=== PATIENT | female | born 1950 | race Hispanic/Latino ===

== ENCOUNTER → 2018-01-17 | Outpatient (CLI) | payer MEDICARE ==
[~2018-01-17] VITALS: Ht 162.6 cm; Wt 93.0 kg
[~2018-01-17] MED LIST: AEC81 PO; CHOL50004 PO; CLOP75TA14 PO; CYCL30DR OU; DICY20TA11 PO; FERR-82 PO; FURO20TA4 PO; GLYB5TAB8 PO; HYDR12.530 PO; IBUP-2077 PO; INS7030 SQ; INSU100V12 SQ; ISOS30TA6 PO; ISOS60TA4 PO; MECL-111 PO; MELO-106 PO; METF10004 PO; METF500T6 PO; METO50TA18 PO; MONT10TA24 PO; NITR0.4T50 SL; ONDA8TAB11 PO; PROM25TA7 PO; RANO500T2 PO; REGADENOSON 0.4 MG/5 ML PF SYG IVP SCH; ROPI1TAB11 PO; SERT50TA12 PO; SIMV80TA7 PO; TORS20TA4 PO
== END | disposition home or self-care (01) ==
LOC: SHCH 10:00
PROVIDERS: ATTEND Internal Medicine Cardiovascular Disease
DX: I25.10 Atherosclerotic heart disease of native coronary artery without angina pectoris (principal); I10 Essential (primary) hypertension; E11.9 Type 2 diabetes mellitus without complications; K21.9 Gastro-esophageal reflux disease without esophagitis
CPT/HCPCS: 78452; 93017; 96374; A9500 ×2; J2785

== ENCOUNTER → 2018-01-19 | Outpatient (CLI) | payer MEDICARE ==
[~2018-01-19] MED LIST changes: +IOPAMIDOL-370 75 ML VIAL IV ONE; +ISOVUE-370 50ML VIAL IV ONE; -REGADENOSON 0.4 MG/5 ML PF SYG IVP SCH
== END | disposition home or self-care (01) ==
LOC: RAH 08:53
PROVIDERS: ATTEND Internal Medicine Cardiovascular Disease
DX: I70.213 Atherosclerosis of native arteries of extremities with intermittent claudication, bilateral legs (principal); I70.0 Atherosclerosis of aorta
CPT/HCPCS: 75635; Q9967 ×2

== ENCOUNTER → 2018-01-20 | Outpatient (CLI) | payer MEDICARE ==
[~2018-01-20] MED LIST changes: -IOPAMIDOL-370 75 ML VIAL IV ONE; -ISOVUE-370 50ML VIAL IV ONE
== END | disposition home or self-care (01) ==
LOC: SHCH 15:11
PROVIDERS: ATTEND Internal Medicine Cardiovascular Disease
DX: I10 Essential (primary) hypertension (principal)
CPT/HCPCS: 93306

== ENCOUNTER 2018-03-13 22:32 | Observation (INO) | payer MEDICARE ==
[~2018-03-13] VITALS: Ht 165.1 cm; Wt 89.4 kg
[~2018-03-13 22:32] MED LIST changes: -DICY20TA11 PO; -FURO20TA4 PO; -GLYB5TAB8 PO; -HYDR12.530 PO; -IBUP-2077 PO; -ISOS60TA4 PO; -MECL-111 PO; -METF500T6 PO; -ONDA8TAB11 PO; -PROM25TA7 PO
[2018-03-13 23:06] LABS: BASOPHILS % (AUTO) 0.8 % (0.0-5.0); HEMATOCRIT 37.4 % (36-48); LYMPHOCYTES % (AUTO) 16.6 % (21.0-51.0); MEAN CORPUSCULAR HEMOGLOBIN 31.6 pg (27.0-33.0); MEAN CORPUSCULAR HGB CONC 34.4 g/dL (32.0-36.0); MEAN CORPUSCULAR VOLUME 91.8 fL (79-99); MONOCYTES % (AUTO) 5.8 % (3.0-13.0); NEUTROPHILS % (AUTO) 74.8 % (40.0-77.0); PLATELET COUNT (AUTO) 275 K/uL (130-400); RED BLOOD CELL COUNT(AUTO) 4.07 MIL/uL (4.00-5.50); RED CELL DISTRIBUTION WIDTH 12.9 % (11.0-15.5); WHITE BLOOD COUNT (AUTO) 10.1 K/uL (4.8-10.8)
[2018-03-13 23:25] LABS: CREATININE 2.4 mg/dL (0.5-1.5); POTASSIUM 3.7 mmol/L (3.5-5.1)
[2018-03-13 23:27] LABS: ALBUMIN 3.5 g/dL (3.5-5.0); BILIRUBIN,TOTAL 0.5 mg/dL (0.2-1.0); TOTAL PROTEIN, SERUM 7.7 g/dL (6.0-8.3)
[2018-03-13 23:39] LABS: INR 0.98 (0.85-1.15); PARTIAL THROMBOPLASTIN TIME 23.9 SEC (26.3-35.5); PROTHROMBIN TIME 10.3 SEC (9.6-11.6)
[2018-03-13 23:54] LABS: CREATINE KINASE MB 1.1 ng/mL (0.5-3.6)
[2018-03-14] VITALS (10 sets, daily range): BP systolic 110–187; BP diastolic 57–84
[2018-03-14 00:05] LABS: APPEARANCE,URINE Clear (CLEAR); BILIRUBIN,URINE Negative (NEGATIVE); COLOR,URINE Yellow (YELLOW); GLUCOSE, URINE (UA) Negative (NEGATIVE); KETONES,URINE Negative (NEGATIVE); LEUKOCYTE ESTERASE ,URINE Trace (NEGATIVE); NITRATE,URINE Negative (NEGATIVE); OCCULT BLOOD,URINE Negative (NEGATIVE); PROTEIN,URINE Negative (NEGATIVE)
[2018-03-14 00:55] LABS: BACTERIA,URINE Rare /HPF (None Seen); RBC,URINE 0-1 /HPF (0-1); WBC,URINE 0-1 /HPF (0-1)
[2018-03-14] MEDS ORDERED: ACETAMINOPHEN 325 MG TAB PO PRN ×2 (01:15)
[2018-03-14] MEDS ORDERED: DEXTROSE 50%-WATER 50 ML DISP.SYRIN IV PRN (01:15)
[2018-03-14] MEDS ORDERED: LIDOCAINE HCL-MPF 1% 2ML VIAL IVP PRN (01:15)
[2018-03-14] MEDS ORDERED: POTASSIUM CHLORIDE 20MEQ/100ML 100 ML IV PRN (01:15)
[2018-03-14] MEDS ORDERED: GLUCAGON 1MG KIT 1 MG ML IM PRN (01:15)
[2018-03-14] MEDS ORDERED: POTASSIUM CHLORIDE 10% ELIXIR 20 MEQ/15 ML UDCUP PO PRN ×2 (01:15→12:45)
[2018-03-14] MEDS ORDERED: HYDRALAZINE HCL 20 MG/ML VIAL IV PRN (01:15)
[2018-03-14] MEDS ORDERED: ONDANSETRON HCL MDV 20ML 2 MG/ML VIAL IV PRN (01:15)
[2018-03-14] MEDS ORDERED: SODIUM CHLORIDE 0.9% 1000ML 1,000 ML IV ONE (01:30)
[2018-03-14] MEDS: SODIUM CHLORIDE 0.9% 1000ML 1,000 ML IV SCH ×2 (01:30→14:49)
[2018-03-14] MEDS ORDERED: ONDA8TAB11 PO (02:29)
[2018-03-14] MEDS ORDERED: IBUP-2077 PO (02:31)
[2018-03-14 05:06] LABS: CREATININE 2.3 mg/dL (0.5-1.5)
[2018-03-14 05:11] LABS: POTASSIUM 2.9 mmol/L (3.5-5.1)
[2018-03-14] MEDS: INSULIN HUMULIN R 100 UNIT/ML 3ML SQ SCH ×4 (06:09→22:20)
[2018-03-14] MEDS: POTASSIUM CHLORIDE 20 MEQ ERTAB PO PRN ×2 (08:09→08:10)
[2018-03-14] MEDS: FAMOTIDINE 20MG TAB 20 MG TAB PO SCH (09:22)
[2018-03-14] MEDS ORDERED: PHARMACY COMMUNICATION MISC SCH (12:15)
[2018-03-14] MEDS ORDERED: LIDOCAINE HCL-MPF 1% 2ML VIAL IV PRN (12:45)
[2018-03-14] MEDS ORDERED: POTASSIUM CHLORIDE 10MEQ/100ML 100 ML IV PRN (12:45)
[2018-03-14] MEDS: SIMETHICONE 80 MG TAB.CHEW PO SCH ×3 (14:50→21:43)
[2018-03-14] MEDS: ***HM***(Cyclosporine (Restasis) 1 DROP) OU SCH (21:00)
[2018-03-14] MEDS: MONTELUKAST SODIUM 10 MG TAB PO SCH (21:43)
[2018-03-14] MEDS: ATORVASTATIN CALCIUM 40 MG TABLET PO SCH (21:43)
[2018-03-14] MEDS: METOPROLOL TARTRATE 50 MG TAB PO SCH (21:43)
[2018-03-14] MEDS: RANOLAZINE 500 MG TAB.SR.12H PO SCH (21:43)
[2018-03-14] MEDS: ROPINIROLE HCL 1 MG TABLET PO SCH (21:44)
[2018-03-15] MEDS: GUAIFENESIN-DM 200/20 MG 10 ML PO PRN ×4 (00:03→22:07)
[2018-03-15 04:00] VITALS: BP 148/62
[2018-03-15 04:35] LABS: HEMATOCRIT 32.8 % (36-48); MEAN CORPUSCULAR HGB CONC 35.8 g/dL (32.0-36.0); MEAN CORPUSCULAR VOLUME 92.3 fL (79-99); PLATELET COUNT (AUTO) 223 K/uL (130-400); RED BLOOD CELL COUNT(AUTO) 3.55 MIL/uL (4.00-5.50); RED CELL DISTRIBUTION WIDTH 13.3 % (11.0-15.5); WHITE BLOOD COUNT (AUTO) 8.9 K/uL (4.8-10.8)
[2018-03-15 04:41] LABS: CREATININE 1.4 mg/dL (0.5-1.5); MAGNESIUM 1.4 mg/dL (1.80-2.40); PHOSPHORUS 2.2 mg/dL (2.5-4.9); POTASSIUM 3.2 mmol/L (3.5-5.1)
[2018-03-15 05:13] LABS: EOSINOPHILS % (MANUAL) 8 % (1-6); LYMPHOCYTES % (MANUAL) 15 % (22-44); MONOCYTES % (MANUAL) 5 % (2-9); SEGMENTED NEUTROPHILS % 72 % (40-70)
[2018-03-15 05:14] LABS: MAN.DIFF COMMENT-IMPRESSION MANUAL DIFFERENTIAL; PLATELET MORPHOLOGY COMMENT ADEQUATE
[2018-03-15] MEDS: INSULIN HUMULIN R 100 UNIT/ML 3ML SQ SCH ×4 (06:37→22:04)
[2018-03-15 08:00] VITALS: BP 160/77
[2018-03-15] MEDS: ***HM***(Cyclosporine (Restasis) 1 DROP) OU SCH ×2 (09:00→21:00)
[2018-03-15] MEDS ORDERED: PSEUDOEPHEDRINE HCL 30 MG TAB PO PRN (09:15)
[2018-03-15] MEDS: CLOPIDOGREL BISULFATE 75 MG TAB PO SCH (09:40)
[2018-03-15] MEDS: SIMETHICONE 80 MG TAB.CHEW PO SCH ×4 (09:41→21:55)
[2018-03-15] MEDS: ASPIRIN 81 MG EC TAB PO SCH (09:41)
[2018-03-15] MEDS: FAMOTIDINE 20MG TAB 20 MG TAB PO SCH (09:41)
[2018-03-15] MEDS: SERTRALINE HCL 50 MG TABLET PO SCH (09:41)
[2018-03-15] MEDS: METOPROLOL TARTRATE 50 MG TAB PO SCH ×2 (09:41→21:55)
[2018-03-15] MEDS: RANOLAZINE 500 MG TAB.SR.12H PO SCH ×2 (09:41→21:55)
[2018-03-15] MEDS: ISOSORBIDE MONO 30MG TAB SR PO SCH ×2 (10:17→21:55)
[2018-03-15] MEDS: OXYMETAZOLINE HCL SPRAY 15 ML BOTTLE EN PRN ×2 (10:17→22:09)
[2018-03-15] MEDS: MAGNESIUM 2GM PREMIX 50ML 50 ML IV SCH (10:18)
[2018-03-15] MEDS: POTASSIUM CHLORIDE 10 MEQ/TAB.SR PO PRN ×3 (10:20→18:13)
[2018-03-15 11:34] VITALS: BP 167/82
[2018-03-15 16:00] VITALS: BP 135/65
[2018-03-15] MEDS: INSULIN HUMULIN 70/30 100 UNIT/ML 3ML SQ SCH (17:29)
[2018-03-15 19:15] VITALS: BP 119/93
[2018-03-15] MEDS: ROPINIROLE HCL 1 MG TABLET PO SCH (21:55)
[2018-03-15] MEDS: MONTELUKAST SODIUM 10 MG TAB PO SCH (21:55)
[2018-03-15] MEDS: ATORVASTATIN CALCIUM 40 MG TABLET PO SCH (21:55)
[2018-03-15] MEDS: FERROUS SULFATE 325 MG TABLET.DR PO SCH (21:55)
[2018-03-16 00:07] VITALS: BP 167/85
[2018-03-16 04:14] VITALS: BP 132/68
[2018-03-16 04:22] LABS: CREATININE 1.3 mg/dL (0.5-1.5); MAGNESIUM 1.5 mg/dL (1.80-2.40); POTASSIUM 3.6 mmol/L (3.5-5.1)
[2018-03-16] MEDS: MAGNESIUM 2GM PREMIX 50ML 50 ML IV SCH (05:39)
[2018-03-16] MEDS: INSULIN HUMULIN R 100 UNIT/ML 3ML SQ SCH (06:53)
[2018-03-16] MEDS: INSULIN HUMULIN 70/30 100 UNIT/ML 3ML SQ SCH (06:58)
[2018-03-16 08:00] VITALS: BP 147/71
[2018-03-16] MEDS: ***HM***(Cyclosporine (Restasis) 1 DROP) OU SCH (09:00)
[2018-03-16] MEDS ORDERED: **HM** VIT D3 5000 UNITS PO SCH (09:00)
[2018-03-16] MEDS ORDERED: FLUTICASONE PROPIONATE 50MCG/SPRAY 16 GM BOTTLE EN SCH (09:00)
[2018-03-16] MEDS: METOPROLOL TARTRATE 50 MG TAB PO SCH (10:05)
[2018-03-16] MEDS: SERTRALINE HCL 50 MG TABLET PO SCH (10:05)
[2018-03-16] MEDS: FERROUS SULFATE 325 MG TABLET.DR PO SCH (10:05)
[2018-03-16] MEDS: SIMETHICONE 80 MG TAB.CHEW PO SCH (10:05)
[2018-03-16] MEDS: ASPIRIN 81 MG EC TAB PO SCH (10:05)
[2018-03-16] MEDS: RANOLAZINE 500 MG TAB.SR.12H PO SCH (10:05)
[2018-03-16] MEDS: CLOPIDOGREL BISULFATE 75 MG TAB PO SCH (10:05)
[2018-03-16] MEDS: ISOSORBIDE MONO 30MG TAB SR PO SCH (10:06)
[2018-03-16] MEDS: FAMOTIDINE 20MG TAB 20 MG TAB PO SCH (10:06)
[2018-03-16 12:00] VITALS: BP 130/62
== END 2018-03-16 14:52 | disposition home or self-care (01) ==
LOC: EDH 22:32 → EDHIP 03-14 00:17 → 3DH 03-14 00:45
PROVIDERS: ADMIT Family Medicine; ATTEND Family Medicine
DX: R55 Syncope and collapse (principal); I25.10 Atherosclerotic heart disease of native coronary artery without angina pectoris; I10 Essential (primary) hypertension; E78.5 Hyperlipidemia, unspecified; E11.51 Type 2 diabetes mellitus with diabetic peripheral angiopathy without gangrene; E11.65 Type 2 diabetes mellitus with hyperglycemia; K52.9 Noninfective gastroenteritis and colitis, unspecified; N28.9 Disorder of kidney and ureter, unspecified; I25.2 Old myocardial infarction; Z95.5 Presence of coronary angioplasty implant and graft; I73.9 Peripheral vascular disease, unspecified
CPT/HCPCS: 36415 ×4; 70450; 71045; 80048 ×3; 80053; 81001; 82550; 82553; 82948 ×10; 83605 ×3; 83690; 83735 ×2; 83874; 84100; 84484; 85025 ×2; 85610; 85730; 87088; 87804 ×2; 87880; 93005; 93880; 96361 ×2; 96365; 96366; 96372 ×3; 96375; 99285; G0378 ×63; J0360; J1815 ×8; J3475 ×2; J3490; J7030

== ENCOUNTER 2018-07-01 12:46 | Emergency (ER) | payer MEDICARE ==
[~2018-07-01 12:46] MED LIST changes: +IBUP-2077 PO; +METF-446 PO; -METF10004 PO; +ONDA8TAB11 PO
[2018-07-01 13:55] LABS: BASOPHILS % (AUTO) 0.8 % (0.0-5.0); EOSINOPHILS % (AUTO) 2.6 % (0.0-8.0); HEMATOCRIT 33.6 % (36-48); MEAN CORPUSCULAR HEMOGLOBIN 33.1 pg (27.0-33.0); MEAN CORPUSCULAR HGB CONC 34.4 g/dL (32.0-36.0); MEAN CORPUSCULAR VOLUME 96.1 fL (79-99); MONOCYTES % (AUTO) 6.5 % (3.0-13.0); NEUTROPHILS % (AUTO) 74.1 % (40.0-77.0); PLATELET COUNT (AUTO) 199 K/uL (130-400); RED BLOOD CELL COUNT(AUTO) 3.49 MIL/uL (4.00-5.50); RED CELL DISTRIBUTION WIDTH 13.2 % (11.0-15.5); WHITE BLOOD COUNT (AUTO) 7.6 K/uL (4.8-10.8)
[2018-07-01 14:24] LABS: CREATININE 1.6 mg/dL (0.5-1.5); POTASSIUM 4.5 mmol/L (3.5-5.1)
[2018-07-01 14:30] LABS: ALBUMIN 3.2 g/dL (3.5-5.0); BILIRUBIN,TOTAL 0.3 mg/dL (0.2-1.0); TOTAL PROTEIN, SERUM 7.6 g/dL (6.0-8.3)
== END 2018-07-01 16:19 | disposition home or self-care (01) ==
LOC: EDH 12:46
DX: E11.649 Type 2 diabetes mellitus with hypoglycemia without coma (principal); R53.1 Weakness; I10 Essential (primary) hypertension; I25.10 Atherosclerotic heart disease of native coronary artery without angina pectoris; E78.5 Hyperlipidemia, unspecified; Z98.890 Other specified postprocedural states
CPT/HCPCS: 36415; 80053; 82948; 85025

== ENCOUNTER 2018-10-23 16:11 | Emergency (ER) | payer MEDICARE ==
[~2018-10-23 16:11] MED LIST changes: -SIMV80TA7 PO; +SIMV80TA91 PO
[2018-10-23 17:09] LABS: BASOPHILS % (AUTO) 0.7 % (0.0-5.0); EOSINOPHILS % (AUTO) 4.7 % (0.0-8.0); HEMATOCRIT 36.9 % (36-48); LYMPHOCYTES % (AUTO) 17.9 % (21.0-51.0); MEAN CORPUSCULAR HEMOGLOBIN 32.1 pg (27.0-33.0); MEAN CORPUSCULAR HGB CONC 33.9 g/dL (32.0-36.0); MEAN CORPUSCULAR VOLUME 94.7 fL (79-99); MONOCYTES % (AUTO) 5.3 % (3.0-13.0); NEUTROPHILS % (AUTO) 71.4 % (40.0-77.0); PLATELET COUNT (AUTO) 233 K/uL (130-400); RED CELL DISTRIBUTION WIDTH 12.8 % (11.0-15.5); WHITE BLOOD COUNT (AUTO) 9.7 K/uL (4.8-10.8)
[2018-10-23 17:18] LABS: CREATININE 2.1 mg/dL (0.5-1.5); POTASSIUM 4.8 mmol/L (3.5-5.1)
== END 2018-10-23 19:14 | disposition home or self-care (01) ==
LOC: EDH 16:11
DX: R55 Syncope and collapse (principal); I25.10 Atherosclerotic heart disease of native coronary artery without angina pectoris; E11.9 Type 2 diabetes mellitus without complications; E78.5 Hyperlipidemia, unspecified; I10 Essential (primary) hypertension; Z79.4 Long term (current) use of insulin; Z90.49 Acquired absence of other specified parts of digestive tract
CPT/HCPCS: 36415; 80048; 84484; 85025; 93005

== ENCOUNTER → 2018-11-06 | Outpatient (CLI) | payer MEDICARE | END | disposition home or self-care (01) | LOC: RAH 11:18 | PROVIDERS: ATTEND Internal Medicine Cardiovascular Disease | DX: M47.26 Other spondylosis with radiculopathy, lumbar region (principal); I73.9 Peripheral vascular disease, unspecified; M48.061 Spinal stenosis, lumbar region without neurogenic claudication; M51.16 Intervertebral disc disorders with radiculopathy, lumbar region | CPT/HCPCS: 72148 ==

== ENCOUNTER → 2018-11-06 | Outpatient (CLI) | payer MEDICARE | END | disposition home or self-care (01) | LOC: SHCH 13:37 | PROVIDERS: ATTEND Internal Medicine Cardiovascular Disease | DX: I73.9 Peripheral vascular disease, unspecified (principal) | CPT/HCPCS: 93925 ==

== ENCOUNTER 2019-01-03 21:10 | Emergency (ER) | payer MEDICARE ==
[2019-01-03] MEDS ORDERED: SODIUM CHLORIDE 0.9% 1000ML 1,000 ML IV ONE (21:34)
[2019-01-03 22:22] LABS: CREATININE 1.7 mg/dL (0.5-1.5); POTASSIUM 3.5 mmol/L (3.5-5.1)
[2019-01-03] MEDS ORDERED: POTASSIUM CHLORIDE 20 MEQ ERTAB PO ONE (22:49)
[2019-01-03] MEDS ORDERED: INSULIN HUMULIN R 100 UNIT/ML 3ML ONE (22:50)
== END 2019-01-03 23:27 | disposition home or self-care (01) ==
LOC: EDH 21:10
DX: E11.65 Type 2 diabetes mellitus with hyperglycemia (principal); Z79.4 Long term (current) use of insulin
CPT/HCPCS: 36415; 80048; 82948 ×2; 83036; 96361; 96374; 99283; J1815; J7030

== ENCOUNTER 2019-01-22 10:25 | Emergency (ER) | payer MEDICARE ==
[2019-01-22 11:21] LABS: BASOPHILS % (AUTO) 0.6 % (0.0-5.0); EOSINOPHILS % (AUTO) 3.1 % (0.0-8.0); HEMATOCRIT 35.5 % (36-48); LYMPHOCYTES % (AUTO) 11.3 % (21.0-51.0); MEAN CORPUSCULAR HEMOGLOBIN 32.7 pg (27.0-33.0); MEAN CORPUSCULAR HGB CONC 34.2 g/dL (32.0-36.0); MEAN CORPUSCULAR VOLUME 95.6 fL (79-99); MONOCYTES % (AUTO) 7.1 % (3.0-13.0); NEUTROPHILS % (AUTO) 77.9 % (40.0-77.0); PLATELET COUNT (AUTO) 194 K/uL (130-400); RED BLOOD CELL COUNT(AUTO) 3.71 MIL/uL (4.00-5.50); WHITE BLOOD COUNT (AUTO) 8.8 K/uL (4.8-10.8)
[2019-01-22 11:36] LABS: ALBUMIN 3.4 g/dL (3.5-5.0); BILIRUBIN,TOTAL 0.5 mg/dL (0.2-1.0); CREATININE 1.8 mg/dL (0.5-1.5); POTASSIUM 4.6 mmol/L (3.5-5.1); TOTAL PROTEIN, SERUM 7.4 g/dL (6.0-8.3)
[2019-01-22 12:29] LABS: APPEARANCE,URINE Clear (CLEAR); BILIRUBIN,URINE Negative (NEGATIVE); COLOR,URINE Yellow (YELLOW); GLUCOSE, URINE (UA) >=1000 mg/dL (NEGATIVE); KETONES,URINE 15 mg/dL (NEGATIVE); LEUKOCYTE ESTERASE ,URINE Negative (NEGATIVE); NITRATE,URINE Negative (NEGATIVE); OCCULT BLOOD,URINE Negative (NEGATIVE); PROTEIN,URINE Negative (NEGATIVE); UROBILINOGEN,URINE 0.2 mg/dL (0.2-1.0)
[2019-01-22 12:32] LABS: RBC,URINE 0-1 /HPF (0-1); WBC,URINE 0-1 /HPF (0-1)
[2019-01-22 12:33] LABS: BACTERIA,URINE Rare /HPF (None Seen); SQUAMOUS EPITHELIAL CELL,UR Few /HPF (0-2); YEAST,URINE BUDDING Moderate /HPF (None Seen)
[2019-01-22] MEDS ORDERED: INSULIN HUMULIN R 100 UNIT/ML 3ML ONE (12:50)
[2019-01-22] MEDS ORDERED: SODIUM CHLORIDE 0.9% 1000ML 1,000 ML IV ONE (12:55)
== END 2019-01-22 15:20 | disposition home or self-care (01) ==
LOC: EDH 10:25
DX: E11.65 Type 2 diabetes mellitus with hyperglycemia (principal); R53.1 Weakness; M25.561 Pain in right knee; M25.562 Pain in left knee; I10 Essential (primary) hypertension; E78.5 Hyperlipidemia, unspecified; I25.10 Atherosclerotic heart disease of native coronary artery without angina pectoris; G89.29 Other chronic pain; M54.9 Dorsalgia, unspecified; Z90.49 Acquired absence of other specified parts of digestive tract; Z98.890 Other specified postprocedural states; Z79.899 Other long term (current) drug therapy; W18.39XA Other fall on same level, initial encounter; Y93.89 Activity, other specified; Y92.89 Other specified places as the place of occurrence of the external cause; Y99.8 Other external cause status
CPT/HCPCS: 36415; 71045; 80053; 81001; 82009; 82948; 84484; 85025; 93005; 96361; 96374; 99284; J1815; J7030

== ENCOUNTER → 2019-07-09 | Outpatient (CLI) | payer MEDICARE | END | disposition home or self-care (01) | LOC: SHCH 11:35 | PROVIDERS: ATTEND Internal Medicine Cardiovascular Disease | DX: I65.23 Occlusion and stenosis of bilateral carotid arteries (principal) | CPT/HCPCS: 93880 ==

== ENCOUNTER 2019-07-21 05:20 | Emergency (ER) | payer MEDICARE ==
[2019-07-21] MEDS ORDERED: SODIUM CHLORIDE 0.9% 1000ML 1,000 ML IV ONE (06:11)
[2019-07-21 06:54] LABS: BASOPHILS % (AUTO) 0.8 % (0.0-5.0); EOSINOPHILS % (AUTO) 4.3 % (0.0-8.0); HEMATOCRIT 36.8 % (36-48); LYMPHOCYTES % (AUTO) 18.3 % (21.0-51.0); MEAN CORPUSCULAR HEMOGLOBIN 33.4 pg (27.0-33.0); MEAN CORPUSCULAR HGB CONC 34.7 g/dL (32.0-36.0); MEAN CORPUSCULAR VOLUME 96.4 fL (79-99); MONOCYTES % (AUTO) 6.2 % (3.0-13.0); NEUTROPHILS % (AUTO) 70.4 % (40.0-77.0); PLATELET COUNT (AUTO) 195 K/uL (130-400); RED BLOOD CELL COUNT(AUTO) 3.82 MIL/uL (4.00-5.50); RED CELL DISTRIBUTION WIDTH 12.1 % (11.0-15.5); WHITE BLOOD COUNT (AUTO) 9.6 K/uL (4.8-10.8)
[2019-07-21 07:04] LABS: INR 0.91 (0.85-1.15); PARTIAL THROMBOPLASTIN TIME 26.3 SEC (26.3-35.5); PROTHROMBIN TIME 9.6 SEC (9.6-11.6)
[2019-07-21 07:09] LABS: ALBUMIN 3.6 g/dL (3.5-5.0); BILIRUBIN,TOTAL 0.3 mg/dL (0.2-1.0); CREATININE 1.7 mg/dL (0.5-1.5)
[2019-07-21 07:23] LABS: B-TYPE NATRIURETIC PEPTIDE 68 pg/mL (0-100)
== END 2019-07-21 08:26 | disposition home or self-care (01) ==
LOC: EDH 05:20
DX: F43.0 Acute stress reaction (principal); R55 Syncope and collapse; E11.9 Type 2 diabetes mellitus without complications; I25.10 Atherosclerotic heart disease of native coronary artery without angina pectoris; E78.5 Hyperlipidemia, unspecified; I10 Essential (primary) hypertension; Z79.4 Long term (current) use of insulin
CPT/HCPCS: 36415; 71045; 80053; 82550; 83605; 83690; 83880; 84484; 85025; 85610; 85730; 93005; 96360; 99285; J7030

== ENCOUNTER → 2020-05-23 | Outpatient (CLI) | payer OTHER, MEDICARE ==
[~2020-05-23] MED LIST changes: -CLOP75TA14 PO; +GABA-531 PO; -IBUP-2077 PO; -INS7030 SQ; +INSU100I13 SQ; -INSU100V12 SQ; -MELO-106 PO; -METF-446 PO; +METO25TA6 PO; -METO50TA18 PO; -MONT10TA24 PO; +MONT10TA26 PO; -ONDA8TAB11 PO; -ROPI1TAB11 PO; -SERT50TA12 PO; +TORS10TA18 PO; -TORS20TA4 PO
== END | disposition home or self-care (01) ==
LOC: SHCH 09:38
PROVIDERS: ATTEND Internal Medicine Cardiovascular Disease
DX: I34.0 Nonrheumatic mitral (valve) insufficiency (principal)
CPT/HCPCS: 93306

== ENCOUNTER → 2020-07-31 | Outpatient (CLI) | payer OTHER, MEDICARE ==
[~2020-07-31] MED LIST changes: +REGADENOSON 0.4 MG/5 ML PF SYG IVP SCH
== END | disposition home or self-care (01) ==
LOC: SHCH 08:38
PROVIDERS: ATTEND Internal Medicine Cardiovascular Disease
DX: I25.89 Other forms of chronic ischemic heart disease (principal); I10 Essential (primary) hypertension
CPT/HCPCS: 78452; 93017; 96374; A9500 ×2; J2785

== ENCOUNTER 2020-10-18 11:32 | Inpatient (IN) | payer OTHER, MEDICARE ==
[~2020-10-18] VITALS: Ht 160 cm; Wt 77.2 kg
[~2020-10-18 11:32] MED LIST changes: -ISOS30TA6 PO; +ISOS30TA92 PO; +MONT-39 PO; -MONT10TA26 PO; -REGADENOSON 0.4 MG/5 ML PF SYG IVP SCH
[2020-10-18 11:48] LABS: BASOPHILS % (AUTO) 0.1 % (0.0-5.0); HEMATOCRIT 28.1 % (36-48); LYMPHOCYTES % (AUTO) 3.9 % (21.0-51.0); MEAN CORPUSCULAR HEMOGLOBIN 30.6 pg (27.0-33.0); MEAN CORPUSCULAR HGB CONC 32.4 g/dL (32.0-36.0); MEAN CORPUSCULAR VOLUME 94.6 fL (79-99); MONOCYTES % (AUTO) 2.6 % (3.0-13.0); NEUTROPHILS % (AUTO) 92.6 % (40.0-77.0); PLATELET COUNT (AUTO) 341 K/uL (130-400); RED BLOOD CELL COUNT(AUTO) 2.97 MIL/uL (4.00-5.50); RED CELL DISTRIBUTION WIDTH 13.2 % (11.0-15.5); WHITE BLOOD COUNT (AUTO) 14.1 K/uL (4.8-10.8)
[2020-10-18 12:16] LABS: ALBUMIN 1.8 g/dL (3.5-5.0); BILIRUBIN,TOTAL 0.9 mg/dL (0.2-1.0); CREATININE 1.8 mg/dL (0.5-1.5); POTASSIUM 3.8 mmol/L (3.5-5.1); TOTAL PROTEIN, SERUM 7.2 g/dL (6.0-8.3)
[2020-10-18] MEDS ORDERED: DEXAMETHASONE SOD PHOSPHATE 10MG/ML 1ML VIAL ONE (12:42)
[2020-10-18] MEDS ORDERED: 0.9%NACL 1000ML 1,000 ML IV ONE (12:42)
[2020-10-18] MEDS ORDERED: AZITHROMYCIN 500MG+NS 250ML 250 ML IV ONE (12:42)
[2020-10-18] MEDS ORDERED: CEFTRIAXONE 1G VIAL ONE (12:42)
[2020-10-18 13:15] LABS: ABG BASE EXCESS -1.3 mmol/L (-2.0-3.0); ABG HCO3 22.7 mmol/L (21.0-28.0); ABG OXYGEN SATURATION 99.2 % (95.0-99.0); ABG PCO2 36 mmHg (32-45)
[2020-10-18] MEDS ORDERED: NOREPINEPHRIN 4MG/NS 250ML 250 ML IV ONE (13:41)
[2020-10-18] MEDS: ARTIFICAL TEARS SOL 15 ML OU SCH ×2 (16:45→22:45)
[2020-10-18] MEDS ORDERED: CLONIDINE HCL 0.1 MG TABLET PO PRN (16:45)
[2020-10-18] MEDS ORDERED: ACETAMINOPHEN 650 MG SUPPOSITORY RC PRN (16:45)
[2020-10-18] MEDS ORDERED: LABETALOL 20MG SYG IV PRN (16:45)
[2020-10-18] MEDS ORDERED: CHLORHEXIDINE GLUCONATE 473 ML MOUTHWASH MM SCH (16:45)
[2020-10-18] MEDS ORDERED: ONDANSETRON 4MG INJ IVP PRN (16:45)
[2020-10-18 17:24] LABS: TROPONIN I 0.04 ng/mL (0.00-0.06)
[2020-10-18] MEDS: CHLORHEXIDINE GLUCONATE 473 ML MOUTHWASH MM SCH ×2 (17:45→23:45)
[2020-10-18] MEDS: ALBUTEROL INHALER 90MCG/INH IH SCH ×2 (18:00→22:00)
[2020-10-18] MEDS ORDERED: INSULIN HUMULIN R 100 UNIT/ML 3ML ONE (20:50)
[2020-10-18] MEDS ORDERED: ENOXAPARIN SODIUM 40 MG/0.4 ML SYRINGE SQ ONE (20:50)
[2020-10-18] MEDS ORDERED: DEXAMETHASONE SOD PHOSPHATE 4 MG/ML 1ML VIAL ONE (20:50)
[2020-10-18] MEDS ORDERED: CLOP75TA32 PO (20:51)
[2020-10-18] MEDS ORDERED: PRED20TA3 PO (20:51)
[2020-10-18] MEDS ORDERED: SIMV80TA91 PO (20:51)
[2020-10-18] MEDS ORDERED: CHOL500045 PO (20:51)
[2020-10-18] MEDS ORDERED: LEVO500T90 PO (20:51)
[2020-10-18] MEDS ORDERED: FOLI1TAB85 PO (20:51)
[2020-10-18] MEDS ORDERED: ACET-3194 PO (20:51)
[2020-10-18] MEDS ORDERED: TRAM50TA4 PO (20:51)
[2020-10-18] MEDS ORDERED: ENOXAPARIN SODIUM 0.5 MG/KG EACH SQ SCH (21:00)
[2020-10-18] MEDS: DEXAMETHASONE SOD PHOSPHATE 4 MG/ML 1ML VIAL IVP SCH (21:00)
[2020-10-18] MEDS: INSULIN HUMULIN R 100 UNIT/ML 3ML SQ SCH (21:00)
[2020-10-18 23:03] LABS: CREATINE KINASE, TOTAL 29 U/L (21-232); MYOGLOBIN 73 ng/mL (10-92); TROPONIN I < 0.04 ng/mL (0.00-0.06)
[2020-10-19] MEDS ORDERED: VANCOMYCIN PROTOCOL PER PHARMACY IV SCH (00:15)
[2020-10-19] MEDS ORDERED: RENAL DOSE IV PRN (00:15)
[2020-10-19] MEDS ORDERED: ZOSYN 3.375GM+NS 50ML 50 ML IV ONE ×2 (01:35→07:39)
[2020-10-19] MEDS: ALBUTEROL INHALER 90MCG/INH IH SCH ×6 (02:00→22:00)
[2020-10-19] MEDS ORDERED: VANCOMYCIN 1G/250ML KIT 250 ML IV ONE (02:34)
[2020-10-19] MEDS: ARTIFICAL TEARS SOL 15 ML OU SCH ×4 (04:45→22:45)
[2020-10-19 04:59] LABS: BASOPHILS % (AUTO) 0.1 % (0.0-5.0); HEMATOCRIT 28.2 % (36-48); LYMPHOCYTES % (AUTO) 4.4 % (21.0-51.0); MEAN CORPUSCULAR HEMOGLOBIN 30.8 pg (27.0-33.0); MEAN CORPUSCULAR HGB CONC 32.6 g/dL (32.0-36.0); MEAN CORPUSCULAR VOLUME 94.3 fL (79-99); MONOCYTES % (AUTO) 2.3 % (3.0-13.0); NEUTROPHILS % (AUTO) 92.5 % (40.0-77.0); PLATELET COUNT (AUTO) 383 K/uL (130-400); RED BLOOD CELL COUNT(AUTO) 2.99 MIL/uL (4.00-5.50); RED CELL DISTRIBUTION WIDTH 13.2 % (11.0-15.5); WHITE BLOOD COUNT (AUTO) 15.9 K/uL (4.8-10.8)
[2020-10-19] MEDS: CHLORHEXIDINE GLUCONATE 473 ML MOUTHWASH MM SCH ×4 (05:45→23:45)
[2020-10-19 05:51] LABS: CARBON DIOXIDE 28 mmol/L (21-32); CHLORIDE 102 mmol/L (101-111); CREATINE KINASE, TOTAL 29 U/L (21-232); CREATININE 1.6 mg/dL (0.5-1.5); GLOMERULAR FILTR. RATE CALC 34 mL/min (>60); GLUCOSE,RANDOM 179 mg/dL (70-105); LACTATE DEHYDROGENASE 573 U/L (81-234); MYOGLOBIN 62 ng/mL (10-92); PHOSPHORUS 3.7 mg/dL (2.5-4.9); POTASSIUM 4.9 mmol/L (3.5-5.1); SODIUM SERUM 138 mmol/L (136-145); THYROID STIMULATING HORMONE 0.32 uIU/mL (0.36-3.74); TROPONIN I < 0.04 ng/mL (0.00-0.06); UREA NITROGEN, BLOOD 32 mg/dL (7-18)
[2020-10-19 05:54] LABS: RETICULOCYTE % (AUTO) 2.27 % (0.42-2.23)
[2020-10-19 06:09] LABS: B-TYPE NATRIURETIC PEPTIDE 639 pg/mL (0-100)
[2020-10-19 07:25] LABS: ABG BASE EXCESS 1.5 mmol/L (-2.0-3.0); ABG HCO3 25.5 mmol/L (21.0-28.0); ABG OXYGEN SATURATION 96.2 % (95.0-99.0); ABG PCO2 38 mmHg (32-45)
[2020-10-19] MEDS: INSULIN HUMULIN R 100 UNIT/ML 3ML SQ SCH ×4 (07:30→21:00)
[2020-10-19] MEDS ORDERED: DEXAMETHASONE SOD PHOSPHATE 10MG/ML 1ML VIAL ONE (07:39)
[2020-10-19] MEDS: ASCORBIC ACID 500 MG TAB PO SCH (09:00)
[2020-10-19] MEDS: ENOXAPARIN SODIUM 40 MG/0.4 ML SYRINGE SQ SCH (09:00)
[2020-10-19] MEDS: DEXAMETHASONE SOD PHOSPHATE 4 MG/ML 1ML VIAL IVP SCH ×2 (09:00→21:00)
[2020-10-19 09:37] LABS: % IRON SATURATION 25.3 % (22-44)
[2020-10-19] MEDS ORDERED: ASCORBIC ACID 500 MG TAB ONE (10:47)
[2020-10-19] MEDS ORDERED: ENOXAPARIN SODIUM 40 MG/0.4 ML SYRINGE SQ ONE (10:48)
[2020-10-19] MEDS ORDERED: INSULIN HUMULIN R 100 UNIT/ML 3ML ONE (10:48)
[2020-10-19] MEDS: ZOSYN 3.375GM+NS 50ML 50 ML IV SCH (14:00)
[2020-10-19] MEDS ORDERED: DEXAMETHASONE SOD PHOSPHATE 4 MG/ML 1ML VIAL ONE (21:50)
[2020-10-20] MEDS: ALBUTEROL INHALER 90MCG/INH IH SCH ×6 (02:00→22:00)
[2020-10-20] MEDS: ZOSYN 3.375GM+NS 50ML 50 ML IV SCH ×2 (02:00→14:00)
[2020-10-20] MEDS ORDERED: ZOSYN 3.375GM+NS 50ML 50 ML IV ONE ×2 (03:16→15:48)
[2020-10-20 04:41] LABS: ABG BASE EXCESS -0.3 mmol/L (-2.0-3.0); ABG OXYGEN SATURATION 96.3 % (95.0-99.0); ABG PCO2 34 mmHg (32-45)
[2020-10-20] MEDS: ARTIFICAL TEARS SOL 15 ML OU SCH ×4 (04:45→22:45)
[2020-10-20] MEDS: CHLORHEXIDINE GLUCONATE 473 ML MOUTHWASH MM SCH ×4 (05:45→23:45)
[2020-10-20 06:40] LABS: HEMATOCRIT 27.2 % (36-48); MEAN CORPUSCULAR HEMOGLOBIN 31.4 pg (27.0-33.0); MEAN CORPUSCULAR HGB CONC 33.5 g/dL (32.0-36.0); MEAN CORPUSCULAR VOLUME 93.8 fL (79-99); RED BLOOD CELL COUNT(AUTO) 2.9 MIL/uL (4.00-5.50); RED CELL DISTRIBUTION WIDTH 13.2 % (11.0-15.5); WHITE BLOOD COUNT (AUTO) 16.1 K/uL (4.8-10.8)
[2020-10-20] MEDS: INSULIN HUMULIN R 100 UNIT/ML 3ML SQ SCH ×4 (07:30→21:00)
[2020-10-20 07:31] LABS: ALBUMIN 1.6 g/dL (3.5-5.0); BILIRUBIN,TOTAL 0.5 mg/dL (0.2-1.0); CREATININE 1.2 mg/dL (0.5-1.5); POTASSIUM 4.6 mmol/L (3.5-5.1); TOTAL PROTEIN, SERUM 7.2 g/dL (6.0-8.3)
[2020-10-20] MEDS ORDERED: ASCORBIC ACID 500 MG TAB ONE (08:50)
[2020-10-20] MEDS ORDERED: DEXAMETHASONE SOD PHOSPHATE 10MG/ML 1ML VIAL ONE (08:50)
[2020-10-20] MEDS ORDERED: ENOXAPARIN SODIUM 40 MG/0.4 ML SYRINGE SQ ONE (08:51)
[2020-10-20] MEDS: ASCORBIC ACID 500 MG TAB PO SCH (09:00)
[2020-10-20] MEDS: DEXAMETHASONE SOD PHOSPHATE 4 MG/ML 1ML VIAL IVP SCH ×2 (09:00→21:00)
[2020-10-20] MEDS: ENOXAPARIN SODIUM 40 MG/0.4 ML SYRINGE SQ SCH (09:00)
[2020-10-20] MEDS ORDERED: ALBUTEROL INHALER 90MCG/INH IH ONE (09:58)
[2020-10-20 17:11] LABS: ABG BASE EXCESS -1.9 mmol/L (-2.0-3.0); ABG HCO3 21.8 mmol/L (21.0-28.0); ABG OXYGEN SATURATION 97.5 % (95.0-99.0); ABG PCO2 34 mmHg (32-45)
[2020-10-20] MEDS ORDERED: INSULIN HUMULIN R 100 UNIT/ML 3ML ONE (17:52)
[2020-10-21] MEDS: ALBUTEROL INHALER 90MCG/INH IH SCH ×6 (02:00→21:57)
[2020-10-21] MEDS: ZOSYN 3.375GM+NS 50ML 50 ML IV SCH ×2 (02:00→14:59)
[2020-10-21] MEDS ORDERED: ZOSYN 3.375GM+NS 50ML 50 ML IV ONE (04:04)
[2020-10-21] MEDS: ARTIFICAL TEARS SOL 15 ML OU SCH ×6 (04:45→21:56)
[2020-10-21] MEDS: CHLORHEXIDINE GLUCONATE 473 ML MOUTHWASH MM SCH ×4 (05:45→21:59)
[2020-10-21] MEDS: INSULIN HUMULIN R 100 UNIT/ML 3ML SQ SCH ×4 (07:30→22:12)
[2020-10-21] MEDS ORDERED: DEXAMETHASONE SOD PHOSPHATE 4 MG/ML 1ML VIAL ONE (08:07)
[2020-10-21] MEDS ORDERED: ASCORBIC ACID 500 MG TAB ONE (08:07)
[2020-10-21] MEDS ORDERED: ENOXAPARIN SODIUM 40 MG/0.4 ML SYRINGE SQ ONE (08:08)
[2020-10-21] MEDS ORDERED: ACETAMINOPHEN 325 MG TAB ONE (08:08)
[2020-10-21] MEDS ORDERED: VANCOMYCIN 1G/250ML KIT 250 ML IV ONE (08:08)
[2020-10-21] MEDS ORDERED: INSULIN HUMULIN R 100 UNIT/ML 3ML ONE ×2 (08:09→12:05)
[2020-10-21] MEDS ORDERED: INSULIN GLARGINE 100 UNITS/ML 10 ML VIAL SQ SCH (09:00)
[2020-10-21] MEDS: DEXAMETHASONE SOD PHOSPHATE 4 MG/ML 1ML VIAL IVP SCH ×2 (09:00→21:55)
[2020-10-21] MEDS: ASCORBIC ACID 500 MG TAB PO SCH (09:00)
[2020-10-21] MEDS: VANCOMYCIN 1G/250ML KIT 250 ML IV SCH (09:00)
[2020-10-21] MEDS ORDERED: INSULIN GLARGINE 100 UNITS/ML 10 ML VIAL SQ ONE (09:00)
[2020-10-21] MEDS: ENOXAPARIN SODIUM 40 MG/0.4 ML SYRINGE SQ SCH (09:00)
[2020-10-21 14:07] VITALS: BP 132/61
[2020-10-21 16:15] VITALS: BP 133/63
[2020-10-21 20:00] VITALS: BP 156/76
[2020-10-22] VITALS: BP 160/84
[2020-10-22] MEDS: ALBUTEROL INHALER 90MCG/INH IH SCH ×6 (02:00→21:30)
[2020-10-22] MEDS: ZOSYN 3.375GM+NS 50ML 50 ML IV SCH ×2 (02:00→14:41)
[2020-10-22] MEDS: ARTIFICAL TEARS SOL 15 ML OU SCH ×8 (02:15→21:30)
[2020-10-22 04:00] VITALS: BP 172/85
[2020-10-22] MEDS: CHLORHEXIDINE GLUCONATE 473 ML MOUTHWASH MM SCH ×4 (05:18→21:31)
[2020-10-22 05:53] LABS: BASOPHILS % (AUTO) 0.1 % (0.0-5.0); LYMPHOCYTES % (AUTO) 4.1 % (21.0-51.0); MEAN CORPUSCULAR HEMOGLOBIN 30.8 pg (27.0-33.0); MEAN CORPUSCULAR HGB CONC 32.6 g/dL (32.0-36.0); MEAN CORPUSCULAR VOLUME 94.4 fL (79-99); MONOCYTES % (AUTO) 2.1 % (3.0-13.0); NEUTROPHILS % (AUTO) 92.7 % (40.0-77.0); PLATELET COUNT (AUTO) 410 K/uL (130-400); RED CELL DISTRIBUTION WIDTH 13.2 % (11.0-15.5); WHITE BLOOD COUNT (AUTO) 10.1 K/uL (4.8-10.8)
[2020-10-22 06:13] LABS: ALBUMIN 1.7 g/dL (3.5-5.0); BILIRUBIN,TOTAL 0.5 mg/dL (0.2-1.0); CREATININE 1.2 mg/dL (0.5-1.5); MAGNESIUM 2.1 mg/dL (1.80-2.40); PHOSPHORUS 3.9 mg/dL (2.5-4.9); POTASSIUM 5.2 mmol/L (3.5-5.1); TOTAL PROTEIN, SERUM 7.9 g/dL (6.0-8.3)
[2020-10-22] MEDS: INSULIN HUMULIN R 100 UNIT/ML 3ML SQ SCH ×4 (06:55→21:34)
[2020-10-22 08:00] VITALS: BP 153/78
[2020-10-22] MEDS: FUROSEMIDE 40MG VIAL IVP SCH ×2 (09:04→14:39)
[2020-10-22] MEDS: DEXAMETHASONE SOD PHOSPHATE 4 MG/ML 1ML VIAL IVP SCH ×2 (09:05→21:28)
[2020-10-22] MEDS: ASCORBIC ACID 500 MG TAB PO SCH (09:08)
[2020-10-22] MEDS: ENOXAPARIN SODIUM 40 MG/0.4 ML SYRINGE SQ SCH (09:10)
[2020-10-22 12:00] VITALS: BP 167/84
[2020-10-22 16:00] VITALS: BP 118/52
[2020-10-22 20:00] VITALS: BP 154/79
[2020-10-23] VITALS (7 sets, daily range): BP systolic 123–151; BP diastolic 56–76
[2020-10-23] MEDS: ALBUTEROL INHALER 90MCG/INH IH SCH ×6 (00:57→21:26)
[2020-10-23] MEDS: ZOSYN 3.375GM+NS 50ML 50 ML IV SCH ×2 (01:00→13:09)
[2020-10-23] MEDS: ARTIFICAL TEARS SOL 15 ML OU SCH ×7 (02:15→22:13)
[2020-10-23] MEDS: CHLORHEXIDINE GLUCONATE 473 ML MOUTHWASH MM SCH ×4 (05:45→21:26)
[2020-10-23] MEDS: INSULIN HUMULIN R 100 UNIT/ML 3ML SQ SCH ×4 (06:36→22:26)
[2020-10-23 08:05] LABS: ALBUMIN 1.7 g/dL (3.5-5.0); BILIRUBIN,TOTAL 0.5 mg/dL (0.2-1.0); CREATININE 1.3 mg/dL (0.5-1.5); POTASSIUM 4.8 mmol/L (3.5-5.1); TOTAL PROTEIN, SERUM 7.4 g/dL (6.0-8.3)
[2020-10-23] MEDS: DEXAMETHASONE SOD PHOSPHATE 4 MG/ML 1ML VIAL IVP SCH ×2 (08:38→21:25)
[2020-10-23] MEDS: ASCORBIC ACID 500 MG TAB PO SCH (08:38)
[2020-10-23] MEDS: ENOXAPARIN SODIUM 40 MG/0.4 ML SYRINGE SQ SCH (09:46)
[2020-10-23] MEDS: VANCOMYCIN 1G/250ML KIT 250 ML IV SCH (09:48)
[2020-10-23] MEDS: FUROSEMIDE 20MG VIAL IVP SCH (21:25)
[2020-10-24] MEDS: ALBUTEROL INHALER 90MCG/INH IH SCH ×6 (02:00→22:00)
[2020-10-24] MEDS: ZOSYN 3.375GM+NS 50ML 50 ML IV SCH ×2 (03:06→13:22)
[2020-10-24] MEDS: ARTIFICAL TEARS SOL 15 ML OU SCH ×4 (03:07→22:00)
[2020-10-24 03:48] VITALS: BP 144/6
[2020-10-24 03:49] LABS: ABG BASE EXCESS 6.5 mmol/L (-2.0-3.0); ABG HCO3 31.3 mmol/L (21.0-28.0); ABG OXYGEN SATURATION 90.4 % (95.0-99.0); ABG PCO2 45 mmHg (32-45)
[2020-10-24] MEDS: CHLORHEXIDINE GLUCONATE 473 ML MOUTHWASH MM SCH ×4 (05:37→23:45)
[2020-10-24 05:50] LABS: BASOPHILS % (AUTO) 0.1 % (0.0-5.0); HEMATOCRIT 34.1 % (36-48); LYMPHOCYTES % (AUTO) 4.4 % (21.0-51.0); MEAN CORPUSCULAR HEMOGLOBIN 29.9 pg (27.0-33.0); MEAN CORPUSCULAR VOLUME 93.7 fL (79-99); MONOCYTES % (AUTO) 1.9 % (3.0-13.0); NEUTROPHILS % (AUTO) 92.2 % (40.0-77.0); PLATELET COUNT (AUTO) 387 K/uL (130-400); RED BLOOD CELL COUNT(AUTO) 3.64 MIL/uL (4.00-5.50); RED CELL DISTRIBUTION WIDTH 12.8 % (11.0-15.5); WHITE BLOOD COUNT (AUTO) 9.8 K/uL (4.8-10.8)
[2020-10-24] MEDS: INSULIN HUMULIN R 100 UNIT/ML 3ML SQ SCH ×4 (06:20→21:22)
[2020-10-24 06:34] LABS: ALBUMIN 1.6 g/dL (3.5-5.0); BILIRUBIN,TOTAL 0.5 mg/dL (0.2-1.0); CREATININE 1.5 mg/dL (0.5-1.5); PHOSPHORUS 4.1 mg/dL (2.5-4.9); POTASSIUM 4.9 mmol/L (3.5-5.1); TOTAL PROTEIN, SERUM 7.2 g/dL (6.0-8.3)
[2020-10-24 08:00] VITALS: BP 144/71
[2020-10-24] MEDS: ENOXAPARIN SODIUM 40 MG/0.4 ML SYRINGE SQ SCH (09:32)
[2020-10-24] MEDS: FUROSEMIDE 20MG VIAL IVP SCH ×2 (09:33→21:18)
[2020-10-24] MEDS: VANCOMYCIN 1G/250ML KIT 250 ML IV SCH (09:33)
[2020-10-24] MEDS: ASCORBIC ACID 500 MG TAB PO SCH (09:33)
[2020-10-24] MEDS: DEXAMETHASONE SOD PHOSPHATE 4 MG/ML 1ML VIAL IVP SCH ×2 (09:33→21:18)
[2020-10-24 12:00] VITALS: BP 156/68
[2020-10-24 16:00] VITALS: BP 143/71
[2020-10-24 21:38] VITALS: BP 135/63
[2020-10-25 00:07] VITALS: BP 145/64
[2020-10-25] MEDS: ZOSYN 3.375GM+NS 50ML 50 ML IV SCH ×2 (02:18→13:00)
[2020-10-25] MEDS: ALBUTEROL INHALER 90MCG/INH IH SCH ×6 (02:18→22:24)
[2020-10-25] MEDS: ARTIFICAL TEARS SOL 15 ML OU SCH ×4 (02:19→22:23)
[2020-10-25 03:45] VITALS: BP 134/69
[2020-10-25] MEDS: CHLORHEXIDINE GLUCONATE 473 ML MOUTHWASH MM SCH ×4 (06:29→22:24)
[2020-10-25] MEDS: INSULIN HUMULIN R 100 UNIT/ML 3ML SQ SCH ×4 (06:41→22:40)
[2020-10-25 08:45] VITALS: BP 130/79
[2020-10-25] MEDS: VANCOMYCIN 1G/250ML KIT 250 ML IV SCH (09:34)
[2020-10-25] MEDS: FUROSEMIDE 20MG VIAL IVP SCH (09:35)
[2020-10-25] MEDS: DEXAMETHASONE SOD PHOSPHATE 4 MG/ML 1ML VIAL IVP SCH ×2 (09:35→22:23)
[2020-10-25] MEDS: ASCORBIC ACID 500 MG TAB PO SCH (09:35)
[2020-10-25] MEDS: ENOXAPARIN SODIUM 40 MG/0.4 ML SYRINGE SQ SCH (09:36)
[2020-10-25 12:21] VITALS: BP 118/73
[2020-10-25] MEDS: FUROSEMIDE 40MG VIAL IVP SCH ×2 (15:48→22:23)
[2020-10-25 16:23] VITALS: BP 154/69
[2020-10-25 19:30] VITALS: BP 132/54
[2020-10-26] VITALS (7 sets, daily range): BP systolic 114–163; BP diastolic 55–72
[2020-10-26] MEDS: ZOSYN 3.375GM+NS 50ML 50 ML IV SCH ×2 (03:26→14:21)
[2020-10-26] MEDS: ALBUTEROL INHALER 90MCG/INH IH SCH ×6 (03:26→21:32)
[2020-10-26] MEDS: ARTIFICAL TEARS SOL 15 ML OU SCH ×4 (03:27→21:32)
[2020-10-26 04:22] LABS: ABG BASE EXCESS 2.9 mmol/L (-2.0-3.0); ABG HCO3 26.9 mmol/L (21.0-28.0); ABG PCO2 39 mmHg (32-45)
[2020-10-26 06:22] LABS: BASOPHILS % (AUTO) 0.2 % (0.0-5.0); EOSINOPHILS % (AUTO) 0.1 % (0.0-8.0); HEMATOCRIT 35.7 % (36-48); LYMPHOCYTES % (AUTO) 2.7 % (21.0-51.0); MEAN CORPUSCULAR HEMOGLOBIN 30.5 pg (27.0-33.0); MEAN CORPUSCULAR HGB CONC 32.5 g/dL (32.0-36.0); MEAN CORPUSCULAR VOLUME 93.9 fL (79-99); MONOCYTES % (AUTO) 2.3 % (3.0-13.0); NEUTROPHILS % (AUTO) 92.1 % (40.0-77.0); PLATELET COUNT (AUTO) 416 K/uL (130-400); RED CELL DISTRIBUTION WIDTH 12.6 % (11.0-15.5)
[2020-10-26] MEDS: FUROSEMIDE 40MG VIAL IVP SCH ×2 (06:31→14:21)
[2020-10-26] MEDS: CHLORHEXIDINE GLUCONATE 473 ML MOUTHWASH MM SCH ×4 (06:32→21:32)
[2020-10-26 06:34] LABS: ALBUMIN 1.9 g/dL (3.5-5.0); BILIRUBIN,TOTAL 0.5 mg/dL (0.2-1.0); CREATININE 1.6 mg/dL (0.5-1.5); PHOSPHORUS 4.4 mg/dL (2.5-4.9); TOTAL PROTEIN, SERUM 7.7 g/dL (6.0-8.3)
[2020-10-26] MEDS: INSULIN HUMULIN R 100 UNIT/ML 3ML SQ SCH ×4 (06:41→21:42)
[2020-10-26] MEDS: DEXAMETHASONE SOD PHOSPHATE 4 MG/ML 1ML VIAL IVP SCH ×2 (09:46→21:32)
[2020-10-26] MEDS: VANCOMYCIN 1G/250ML KIT 250 ML IV SCH (09:46)
[2020-10-26] MEDS: ASCORBIC ACID 500 MG TAB PO SCH (09:46)
[2020-10-26] MEDS: ENOXAPARIN SODIUM 40 MG/0.4 ML SYRINGE SQ SCH (09:49)
[2020-10-26 16:56] LABS: ABG HCO3 29.9 mmol/L (21.0-28.0); ABG OXYGEN SATURATION 93.8 % (95.0-99.0); ABG PCO2 41 mmHg (32-45)
[2020-10-27] MEDS: ALBUTEROL INHALER 90MCG/INH IH SCH ×6 (02:00→22:01)
[2020-10-27 03:56] VITALS: BP 119/66
[2020-10-27 06:13] LABS: HEMATOCRIT 36.8 % (36-48); MEAN CORPUSCULAR HEMOGLOBIN 30.3 pg (27.0-33.0); MEAN CORPUSCULAR HGB CONC 32.3 g/dL (32.0-36.0); MEAN CORPUSCULAR VOLUME 93.6 fL (79-99); RED BLOOD CELL COUNT(AUTO) 3.93 MIL/uL (4.00-5.50); RED CELL DISTRIBUTION WIDTH 12.8 % (11.0-15.5); WHITE BLOOD COUNT (AUTO) 13.7 K/uL (4.8-10.8)
[2020-10-27 06:15] LABS: CREATININE 1.4 mg/dL (0.5-1.5); POTASSIUM 4.6 mmol/L (3.5-5.1)
[2020-10-27] MEDS: INSULIN HUMULIN R 100 UNIT/ML 3ML SQ SCH ×4 (06:18→22:11)
[2020-10-27] MEDS: CHLORHEXIDINE GLUCONATE 473 ML MOUTHWASH MM SCH ×4 (06:20→22:01)
[2020-10-27] MEDS: ARTIFICAL TEARS SOL 15 ML OU SCH ×4 (06:20→22:01)
[2020-10-27] MEDS: ASCORBIC ACID 500 MG TAB PO SCH (08:32)
[2020-10-27] MEDS: DEXAMETHASONE SOD PHOSPHATE 4 MG/ML 1ML VIAL IVP SCH ×2 (08:32→22:01)
[2020-10-27] MEDS: ENOXAPARIN SODIUM 40 MG/0.4 ML SYRINGE SQ SCH (08:35)
[2020-10-27 08:42] VITALS: BP 137/71
[2020-10-27 12:27] VITALS: BP 142/63
[2020-10-27 16:37] VITALS: BP 129/60
[2020-10-27] MEDS ORDERED: DEXTROSE 50%-WATER 50 ML DISP.SYRIN IV PRN (18:45)
[2020-10-27] MEDS ORDERED: GLUCAGON 1MG KIT 1 MG ML IM PRN (18:45)
[2020-10-27 19:38] VITALS: BP 119/52
[2020-10-27] MEDS: ACETAMINOPHEN 325 MG TAB PO PRN (22:46)
[2020-10-27 23:50] VITALS: BP 115/57
[2020-10-28] MEDS: ALBUTEROL INHALER 90MCG/INH IH SCH ×6 (02:00→20:57)
[2020-10-28 03:42] VITALS: BP 115/53
[2020-10-28 03:52] LABS: ABG BASE EXCESS 8.9 mmol/L (-2.0-3.0); ABG HCO3 33.6 mmol/L (21.0-28.0); ABG OXYGEN SATURATION 97.5 % (95.0-99.0); ABG PCO2 46 mmHg (32-45)
[2020-10-28 06:00] LABS: HEMATOCRIT 32.4 % (36-48); MEAN CORPUSCULAR HEMOGLOBIN 31.2 pg (27.0-33.0); MEAN CORPUSCULAR VOLUME 91.8 fL (79-99); RED BLOOD CELL COUNT(AUTO) 3.53 MIL/uL (4.00-5.50); RED CELL DISTRIBUTION WIDTH 12.7 % (11.0-15.5); WHITE BLOOD COUNT (AUTO) 15.4 K/uL (4.8-10.8)
[2020-10-28] MEDS: INSULIN HUMULIN R 100 UNIT/ML 3ML SQ SCH ×4 (06:17→21:10)
[2020-10-28 06:20] LABS: CREATININE 1.5 mg/dL (0.5-1.5); MAGNESIUM 2.1 mg/dL (1.80-2.40); PHOSPHORUS 3.7 mg/dL (2.5-4.9); POTASSIUM 4.6 mmol/L (3.5-5.1)
[2020-10-28] MEDS: ARTIFICAL TEARS SOL 15 ML OU SCH ×4 (06:36→20:58)
[2020-10-28] MEDS: CHLORHEXIDINE GLUCONATE 473 ML MOUTHWASH MM SCH ×4 (06:36→20:58)
[2020-10-28] MEDS: ASCORBIC ACID 500 MG TAB PO SCH (10:29)
[2020-10-28] MEDS: DEXAMETHASONE SOD PHOSPHATE 4 MG/ML 1ML VIAL IVP SCH (10:29)
[2020-10-28] MEDS: ENOXAPARIN SODIUM 40 MG/0.4 ML SYRINGE SQ SCH (10:29)
[2020-10-28 11:38] VITALS: BP 136/58
[2020-10-28 15:30] VITALS: BP 121/57
[2020-10-28 20:06] VITALS: BP 119/64
[2020-10-28] MEDS: INSULIN GLARGINE 100 UNITS/ML 10 ML VIAL SQ SCH (21:37)
[2020-10-29 00:16] VITALS: BP 142/45
[2020-10-29] MEDS: ALBUTEROL INHALER 90MCG/INH IH SCH ×6 (02:00→21:16)
[2020-10-29 04:00] VITALS: BP 140/67
[2020-10-29 04:02] LABS: HEMATOCRIT 33.8 % (36-48); MEAN CORPUSCULAR HEMOGLOBIN 30.2 pg (27.0-33.0); MEAN CORPUSCULAR HGB CONC 32.5 g/dL (32.0-36.0); MEAN CORPUSCULAR VOLUME 92.9 fL (79-99); RED BLOOD CELL COUNT(AUTO) 3.64 MIL/uL (4.00-5.50); RED CELL DISTRIBUTION WIDTH 12.7 % (11.0-15.5); WHITE BLOOD COUNT (AUTO) 15.9 K/uL (4.8-10.8)
[2020-10-29 04:17] LABS: CREATININE 1.6 mg/dL (0.5-1.5)
[2020-10-29] MEDS ORDERED: INSULIN HUMULIN R 100 UNIT/ML 3ML ONE (06:25)
[2020-10-29] MEDS: ARTIFICAL TEARS SOL 15 ML OU SCH ×4 (06:29→21:16)
[2020-10-29] MEDS: CHLORHEXIDINE GLUCONATE 473 ML MOUTHWASH MM SCH ×4 (06:29→21:16)
[2020-10-29] MEDS: INSULIN HUMULIN R 100 UNIT/ML 3ML SQ SCH ×4 (06:36→21:32)
[2020-10-29 07:19] LABS: ABG BASE EXCESS 5.3 mmol/L (-2.0-3.0); ABG PCO2 44 mmHg (32-45)
[2020-10-29 07:52] VITALS: BP 133/78
[2020-10-29] MEDS: ASCORBIC ACID 500 MG TAB PO SCH (11:15)
[2020-10-29] MEDS: ENOXAPARIN SODIUM 40 MG/0.4 ML SYRINGE SQ SCH (11:15)
[2020-10-29] MEDS: DEXAMETHASONE SOD PHOSPHATE 4 MG/ML 1ML VIAL IVP SCH (11:16)
[2020-10-29 11:47] VITALS: BP 153/74
[2020-10-29 16:09] VITALS: BP 139/61
[2020-10-29] MEDS: FUROSEMIDE 20MG VIAL IV SCH (16:19)
[2020-10-29 19:52] VITALS: BP 135/68
[2020-10-29] MEDS: ACETAMINOPHEN 325 MG TAB PO PRN (21:18)
[2020-10-29] MEDS: INSULIN GLARGINE 100 UNITS/ML 10 ML VIAL SQ SCH (21:32)
[2020-10-30] MEDS: ALBUTEROL INHALER 90MCG/INH IH SCH ×6 (02:00→21:09)
[2020-10-30] MEDS: FUROSEMIDE 20MG VIAL IV SCH ×2 (04:13→16:11)
[2020-10-30 04:59] VITALS: BP 150/66
[2020-10-30] MEDS: ARTIFICAL TEARS SOL 15 ML OU SCH ×4 (05:02→21:08)
[2020-10-30] MEDS: CHLORHEXIDINE GLUCONATE 473 ML MOUTHWASH MM SCH ×4 (05:02→21:08)
[2020-10-30 05:46] LABS: HEMATOCRIT 32.9 % (36-48); MEAN CORPUSCULAR HEMOGLOBIN 31.1 pg (27.0-33.0); MEAN CORPUSCULAR HGB CONC 33.4 g/dL (32.0-36.0); MEAN CORPUSCULAR VOLUME 92.9 fL (79-99); RED BLOOD CELL COUNT(AUTO) 3.54 MIL/uL (4.00-5.50); RED CELL DISTRIBUTION WIDTH 12.6 % (11.0-15.5); WHITE BLOOD COUNT (AUTO) 16.1 K/uL (4.8-10.8)
[2020-10-30 06:01] LABS: CREATININE 1.3 mg/dL (0.5-1.5); POTASSIUM 4.2 mmol/L (3.5-5.1)
[2020-10-30] MEDS: INSULIN HUMULIN R 100 UNIT/ML 3ML SQ SCH ×4 (06:18→21:18)
[2020-10-30 08:00] VITALS: BP 123/66
[2020-10-30] MEDS: DEXAMETHASONE SOD PHOSPHATE 4 MG/ML 1ML VIAL IVP SCH (09:28)
[2020-10-30] MEDS: ASCORBIC ACID 500 MG TAB PO SCH (09:28)
[2020-10-30] MEDS: ENOXAPARIN SODIUM 40 MG/0.4 ML SYRINGE SQ SCH (09:28)
[2020-10-30 12:00] VITALS: BP 142/62
[2020-10-30 16:00] VITALS: BP 110/53
[2020-10-30 20:41] VITALS: BP 134/61
[2020-10-30] MEDS: DOCUSATE SODIUM 100 MG CAP PO PRN (21:07)
[2020-10-30] MEDS: INSULIN GLARGINE 100 UNITS/ML 10 ML VIAL SQ SCH (21:21)
[2020-10-31] VITALS (7 sets, daily range): BP systolic 122–146; BP diastolic 60–81
[2020-10-31] MEDS: ALBUTEROL INHALER 90MCG/INH IH SCH ×6 (02:00→22:29)
[2020-10-31] MEDS: FUROSEMIDE 20MG VIAL IV SCH ×2 (04:24→16:32)
[2020-10-31] MEDS: ARTIFICAL TEARS SOL 15 ML OU SCH ×4 (05:47→22:00)
[2020-10-31] MEDS: CHLORHEXIDINE GLUCONATE 473 ML MOUTHWASH MM SCH ×4 (05:48→22:28)
[2020-10-31 06:11] LABS: HEMATOCRIT 37.6 % (36-48); MEAN CORPUSCULAR HEMOGLOBIN 30.4 pg (27.0-33.0); MEAN CORPUSCULAR HGB CONC 32.7 g/dL (32.0-36.0); MEAN CORPUSCULAR VOLUME 93.1 fL (79-99); RED BLOOD CELL COUNT(AUTO) 4.04 MIL/uL (4.00-5.50); RED CELL DISTRIBUTION WIDTH 12.7 % (11.0-15.5); WHITE BLOOD COUNT (AUTO) 21.4 K/uL (4.8-10.8)
[2020-10-31] MEDS: INSULIN HUMULIN R 100 UNIT/ML 3ML SQ SCH ×4 (06:16→22:25)
[2020-10-31 06:31] LABS: CREATININE 1.3 mg/dL (0.5-1.5); POTASSIUM 4.2 mmol/L (3.5-5.1)
[2020-10-31 07:35] LABS: ABG BASE EXCESS 5.3 mmol/L (-2.0-3.0); ABG HCO3 30.3 mmol/L (21.0-28.0); ABG OXYGEN SATURATION 95.1 % (95.0-99.0); ABG PCO2 45 mmHg (32-45)
[2020-10-31] MEDS: DEXAMETHASONE SOD PHOSPHATE 4 MG/ML 1ML VIAL IVP SCH (09:55)
[2020-10-31] MEDS: ENOXAPARIN SODIUM 40 MG/0.4 ML SYRINGE SQ SCH (09:55)
[2020-10-31] MEDS: ASCORBIC ACID 500 MG TAB PO SCH (09:55)
[2020-10-31] MEDS ORDERED: IOHEXOL 350 MG/ML 100ML INFUS..BTL IV ONE (14:13)
[2020-10-31] MEDS: INSULIN GLARGINE 100 UNITS/ML 10 ML VIAL SQ SCH (22:24)
[2020-10-31] MEDS: ENOXAPARIN SODIUM 30 MG/0.3 ML SQ SCH (22:26)
[2020-11-01 03:18] VITALS: BP 127/64
[2020-11-01] MEDS: ARTIFICAL TEARS SOL 15 ML OU SCH ×4 (03:35→21:12)
[2020-11-01] MEDS: ALBUTEROL INHALER 90MCG/INH IH SCH ×6 (03:36→21:12)
[2020-11-01] MEDS: FUROSEMIDE 20MG VIAL IV SCH ×2 (03:38→14:58)
[2020-11-01] MEDS: INSULIN HUMULIN R 100 UNIT/ML 3ML SQ SCH ×3 (05:18→17:12)
[2020-11-01] MEDS: CHLORHEXIDINE GLUCONATE 473 ML MOUTHWASH MM SCH ×4 (05:19→21:11)
[2020-11-01 06:01] LABS: HEMATOCRIT 37.2 % (36-48); MEAN CORPUSCULAR HEMOGLOBIN 30.3 pg (27.0-33.0); MEAN CORPUSCULAR HGB CONC 32.8 g/dL (32.0-36.0); MEAN CORPUSCULAR VOLUME 92.3 fL (79-99); RED BLOOD CELL COUNT(AUTO) 4.03 MIL/uL (4.00-5.50); RED CELL DISTRIBUTION WIDTH 13.1 % (11.0-15.5); WHITE BLOOD COUNT (AUTO) 22.2 K/uL (4.8-10.8)
[2020-11-01 06:16] LABS: CREATININE 1.3 mg/dL (0.5-1.5); POTASSIUM 3.9 mmol/L (3.5-5.1)
[2020-11-01 08:00] VITALS: BP 136/63
[2020-11-01] MEDS: DEXAMETHASONE SOD PHOSPHATE 4 MG/ML 1ML VIAL IVP SCH (09:01)
[2020-11-01] MEDS: ASCORBIC ACID 500 MG TAB PO SCH (09:02)
[2020-11-01] MEDS: ENOXAPARIN SODIUM 30 MG/0.3 ML SQ SCH ×2 (09:02→21:11)
[2020-11-01] MEDS: FLUOXETINE HCL 10 MG CAPSULE PO SCH (09:32)
[2020-11-01] MEDS ORDERED: VANCOMYCIN PROTOCOL PER PHARMACY IV SCH (11:45)
[2020-11-01 12:00] VITALS: BP 112/50
[2020-11-01] MEDS: CEFEPIME HCL 2 GM VIAL IVP SCH ×2 (12:54→22:18)
[2020-11-01] MEDS ORDERED: COMPOUND IV REFRIGERATED 1 EACH IVSOLN MISC PRN (13:15)
[2020-11-01 13:32] LABS: CREATININE 1.4 mg/dL (0.5-1.5); POTASSIUM 4.9 mmol/L (3.5-5.1)
[2020-11-01 13:37] LABS: ALBUMIN 2.1 g/dL (3.5-5.0); BILIRUBIN,TOTAL 0.6 mg/dL (0.2-1.0); TOTAL PROTEIN, SERUM 6.9 g/dL (6.0-8.3)
[2020-11-01] MEDS ORDERED: VANCOMYCIN 1G 1.25 GM in 0.9% NACL 250ML 250 ML IV ONE (14:00)
[2020-11-01 14:08] LABS: ABG BASE EXCESS 3.9 mmol/L (-2.0-3.0); ABG HCO3 27.9 mmol/L (21.0-28.0); ABG OXYGEN SATURATION 96.2 % (95.0-99.0); ABG PCO2 40 mmHg (32-45)
[2020-11-01] MEDS: METRONIDAZOLE 500MG/100ML BAG 100 ML IVPB SCH ×2 (14:58→21:10)
[2020-11-01 16:00] VITALS: BP 124/61
[2020-11-01 20:00] VITALS: BP 126/69
[2020-11-01] MEDS: INSULIN GLARGINE 100 UNITS/ML 10 ML VIAL SQ SCH (22:10)
[2020-11-02 00:27] VITALS: BP 155/88
[2020-11-02] MEDS: ALBUTEROL INHALER 90MCG/INH IH SCH ×6 (02:00→22:15)
[2020-11-02 03:46] VITALS: BP 136/67
[2020-11-02] MEDS: SOLU-MEDROL 40MG VIAL IVP SCH ×3 (03:50→18:13)
[2020-11-02] MEDS: FUROSEMIDE 20MG VIAL IV SCH ×2 (03:50→15:30)
[2020-11-02] MEDS: CHLORHEXIDINE GLUCONATE 473 ML MOUTHWASH MM SCH ×4 (05:02→22:15)
[2020-11-02] MEDS: ARTIFICAL TEARS SOL 15 ML OU SCH ×4 (05:03→22:15)
[2020-11-02 05:51] LABS: HEMATOCRIT 32.7 % (36-48); MEAN CORPUSCULAR HEMOGLOBIN 31.1 pg (27.0-33.0); MEAN CORPUSCULAR HGB CONC 33.3 g/dL (32.0-36.0); MEAN CORPUSCULAR VOLUME 93.2 fL (79-99); RED BLOOD CELL COUNT(AUTO) 3.51 MIL/uL (4.00-5.50); RED CELL DISTRIBUTION WIDTH 13.2 % (11.0-15.5); WHITE BLOOD COUNT (AUTO) 18.2 K/uL (4.8-10.8)
[2020-11-02] MEDS ORDERED: VANCOMYCIN 500MG+NS 100ML 100 ML IV SCH ×2 (06:00→21:00)
[2020-11-02 06:09] LABS: CREATININE 1.2 mg/dL (0.5-1.5)
[2020-11-02] MEDS: METRONIDAZOLE 500MG/100ML BAG 100 ML IVPB SCH ×3 (06:18→22:15)
[2020-11-02] MEDS: INSULIN HUMULIN R 100 UNIT/ML 3ML SQ SCH ×3 (06:18→16:28)
[2020-11-02 07:05] VITALS: BP 140/69
[2020-11-02] MEDS: ENOXAPARIN SODIUM 30 MG/0.3 ML SQ SCH ×2 (08:26→22:17)
[2020-11-02] MEDS: ASCORBIC ACID 500 MG TAB PO SCH (08:27)
[2020-11-02] MEDS: FLUOXETINE HCL 10 MG CAPSULE PO SCH (08:27)
[2020-11-02 10:22] VITALS: BP 119/64
[2020-11-02] MEDS: CEFEPIME HCL 2 GM VIAL IVP SCH ×2 (11:32→23:11)
[2020-11-02 15:03] VITALS: BP 119/80
[2020-11-02 20:40] VITALS: BP 131/60
[2020-11-02] MEDS: INSULIN GLARGINE 100 UNITS/ML 10 ML VIAL SQ SCH (22:28)
[2020-11-03 00:27] VITALS: BP 136/78
[2020-11-03] MEDS: ALBUTEROL INHALER 90MCG/INH IH SCH ×6 (02:00→22:22)
[2020-11-03 03:53] VITALS: BP 135/71
[2020-11-03] MEDS: SOLU-MEDROL 40MG VIAL IVP SCH ×3 (04:16→17:47)
[2020-11-03] MEDS: FUROSEMIDE 20MG VIAL IV SCH ×2 (04:16→14:28)
[2020-11-03] MEDS: ARTIFICAL TEARS SOL 15 ML OU SCH ×4 (04:23→22:21)
[2020-11-03] MEDS: CHLORHEXIDINE GLUCONATE 473 ML MOUTHWASH MM SCH ×4 (04:24→22:21)
[2020-11-03 04:43] LABS: ABG BASE EXCESS 1.8 mmol/L (-2.0-3.0); ABG OXYGEN SATURATION 96.6 % (95.0-99.0); ABG PCO2 39 mmHg (32-45)
[2020-11-03 05:49] LABS: BASOPHILS % (AUTO) 0.1 % (0.0-5.0); HEMATOCRIT 38.4 % (36-48); MEAN CORPUSCULAR HEMOGLOBIN 30.3 pg (27.0-33.0); MEAN CORPUSCULAR HGB CONC 32.6 g/dL (32.0-36.0); MONOCYTES % (AUTO) 2.2 % (3.0-13.0); NEUTROPHILS % (AUTO) 93.6 % (40.0-77.0); PLATELET COUNT (AUTO) 355 K/uL (130-400); RED BLOOD CELL COUNT(AUTO) 4.13 MIL/uL (4.00-5.50); RED CELL DISTRIBUTION WIDTH 13.2 % (11.0-15.5); WHITE BLOOD COUNT (AUTO) 23.6 K/uL (4.8-10.8)
[2020-11-03 05:57] LABS: CREATININE 1.5 mg/dL (0.5-1.5); POTASSIUM 4.6 mmol/L (3.5-5.1)
[2020-11-03] MEDS: METRONIDAZOLE 500MG/100ML BAG 100 ML IVPB SCH ×3 (06:25→22:21)
[2020-11-03] MEDS: INSULIN HUMULIN R 100 UNIT/ML 3ML SQ SCH ×3 (06:37→17:17)
[2020-11-03 08:00] VITALS: BP 158/77
[2020-11-03] MEDS: ASCORBIC ACID 500 MG TAB PO SCH (08:45)
[2020-11-03] MEDS: ENOXAPARIN SODIUM 30 MG/0.3 ML SQ SCH ×2 (08:45→22:23)
[2020-11-03] MEDS: FLUOXETINE HCL 10 MG CAPSULE PO SCH (08:45)
[2020-11-03] MEDS ORDERED: COMPOUND IV REFRIGERATED 1 EACH IVSOLN MISC PRN (10:15)
[2020-11-03] MEDS: CEFEPIME HCL 2 GM VIAL IVP SCH (11:23)
[2020-11-03 12:00] VITALS: BP 138/66
[2020-11-03] MEDS: DOCUSATE SODIUM 100 MG CAP PO PRN (15:20)
[2020-11-03 16:00] VITALS: BP 138/55
[2020-11-03 20:04] VITALS: BP 132/67
[2020-11-03] MEDS: VANCOMYCIN 750MG + NS 250 ML IV SCH ×2 (21:00)
[2020-11-03] MEDS: INSULIN GLARGINE 100 UNITS/ML 10 ML VIAL SQ SCH (22:36)
[2020-11-04] VITALS (7 sets, daily range): BP systolic 119–137; BP diastolic 37–73
[2020-11-04] MEDS: CEFEPIME HCL 2 GM VIAL IVP SCH ×3 (00:45→23:58)
[2020-11-04] MEDS: ACETAMINOPHEN 325 MG TAB PO PRN ×2 (00:46→23:59)
[2020-11-04] MEDS: ALBUTEROL INHALER 90MCG/INH IH SCH ×6 (00:47→21:33)
[2020-11-04] MEDS: SOLU-MEDROL 40MG VIAL IVP SCH ×3 (03:55→18:17)
[2020-11-04] MEDS: METRONIDAZOLE 500MG/100ML BAG 100 ML IVPB SCH ×3 (04:48→23:58)
[2020-11-04] MEDS: CHLORHEXIDINE GLUCONATE 473 ML MOUTHWASH MM SCH ×4 (04:48→21:34)
[2020-11-04] MEDS: ARTIFICAL TEARS SOL 15 ML OU SCH ×4 (04:49→21:32)
[2020-11-04] MEDS: INSULIN HUMULIN R 100 UNIT/ML 3ML SQ SCH ×3 (06:35→16:03)
[2020-11-04] MEDS: FLUOXETINE HCL 10 MG CAPSULE PO SCH (10:11)
[2020-11-04] MEDS: ASCORBIC ACID 500 MG TAB PO SCH (10:11)
[2020-11-04] MEDS: ENOXAPARIN SODIUM 30 MG/0.3 ML SQ SCH ×2 (10:12→21:35)
[2020-11-04] MEDS: BALSAM PERU/CASTOR OIL 60 GM TUBE TP SCH ×2 (16:12→21:32)
[2020-11-04 18:35] LABS: MEAN CORPUSCULAR HEMOGLOBIN 31.6 pg (27.0-33.0); MEAN CORPUSCULAR HGB CONC 33.5 g/dL (32.0-36.0); MEAN CORPUSCULAR VOLUME 94.2 fL (79-99); PLATELET COUNT (AUTO) 350 K/uL (130-400); RED BLOOD CELL COUNT(AUTO) 3.61 MIL/uL (4.00-5.50); RED CELL DISTRIBUTION WIDTH 13.4 % (11.0-15.5); WHITE BLOOD COUNT (AUTO) 23.9 K/uL (4.8-10.8)
[2020-11-04 18:58] LABS: CREATININE 1.8 mg/dL (0.5-1.5); MAGNESIUM 2.4 mg/dL (1.80-2.40); POTASSIUM 4.1 mmol/L (3.5-5.1)
[2020-11-04 19:32] LABS: MAN.DIFF COMMENT-IMPRESSION MANUAL DIFFERENTIAL; MONOCYTES % (MANUAL) 1 % (2-9); SEGMENTED NEUTROPHILS % 99 % (40-70)
[2020-11-04 19:33] LABS: PLATELET MORPHOLOGY COMMENT ADEQUATE
[2020-11-04] MEDS: 0.9%NACL 1000ML 1,000 ML IV SCH (21:30)
[2020-11-04] MEDS: VANCOMYCIN 750MG + NS 250 ML IV SCH ×2 (21:31)
[2020-11-04] MEDS: INSULIN GLARGINE 100 UNITS/ML 10 ML VIAL SQ SCH (21:33)
[2020-11-05] MEDS: ALBUTEROL INHALER 90MCG/INH IH SCH ×6 (02:00→21:10)
[2020-11-05] MEDS: SOLU-MEDROL 40MG VIAL IVP SCH ×3 (04:26→18:20)
[2020-11-05] MEDS: ARTIFICAL TEARS SOL 15 ML OU SCH ×4 (05:18→20:49)
[2020-11-05 05:19] VITALS: BP 132/70
[2020-11-05] MEDS: METRONIDAZOLE 500MG/100ML BAG 100 ML IVPB SCH ×3 (05:19→20:49)
[2020-11-05] MEDS: CHLORHEXIDINE GLUCONATE 473 ML MOUTHWASH MM SCH ×4 (05:19→20:49)
[2020-11-05 06:07] LABS: BASOPHILS % (AUTO) 0.2 % (0.0-5.0); HEMATOCRIT 34.7 % (36-48); LYMPHOCYTES % (AUTO) 2.5 % (21.0-51.0); MEAN CORPUSCULAR HGB CONC 32.6 g/dL (32.0-36.0); MEAN CORPUSCULAR VOLUME 95.1 fL (79-99); MONOCYTES % (AUTO) 2.8 % (3.0-13.0); NEUTROPHILS % (AUTO) 93.6 % (40.0-77.0); PLATELET COUNT (AUTO) 316 K/uL (130-400); RED BLOOD CELL COUNT(AUTO) 3.65 MIL/uL (4.00-5.50); RED CELL DISTRIBUTION WIDTH 13.3 % (11.0-15.5); WHITE BLOOD COUNT (AUTO) 19.7 K/uL (4.8-10.8)
[2020-11-05] MEDS: INSULIN HUMULIN R 100 UNIT/ML 3ML SQ SCH ×3 (06:29→17:17)
[2020-11-05 06:34] LABS: CREATININE 1.5 mg/dL (0.5-1.5); POTASSIUM 4.3 mmol/L (3.5-5.1)
[2020-11-05 08:00] VITALS: BP 146/74
[2020-11-05] MEDS: FLUOXETINE HCL 10 MG CAPSULE PO SCH (08:13)
[2020-11-05] MEDS: BALSAM PERU/CASTOR OIL 60 GM TUBE TP SCH ×3 (08:14→20:49)
[2020-11-05] MEDS: ASCORBIC ACID 500 MG TAB PO SCH (08:14)
[2020-11-05] MEDS: ENOXAPARIN SODIUM 30 MG/0.3 ML SQ SCH ×2 (08:14→20:49)
[2020-11-05] MEDS: 0.9%NACL 1000ML 1,000 ML IV SCH (09:35)
[2020-11-05] MEDS: CEFEPIME HCL 2 GM VIAL IVP SCH ×2 (11:13→23:08)
[2020-11-05 12:00] VITALS: BP 142/66
[2020-11-05 13:06] LABS: INR 1.08 (0.85-1.15); PROTHROMBIN TIME 11.5 SEC (9.6-11.6)
[2020-11-05 16:00] VITALS: BP 136/72
[2020-11-05 20:00] VITALS: BP 142/64
[2020-11-05] MEDS: INSULIN GLARGINE 100 UNITS/ML 10 ML VIAL SQ SCH (21:10)
[2020-11-05] MEDS: VANCOMYCIN 750MG + NS 250 ML IV SCH ×2 (21:14)
[2020-11-05 23:52] VITALS: BP 144/55
[2020-11-06] MEDS: ALBUTEROL INHALER 90MCG/INH IH SCH ×6 (02:54→21:43)
[2020-11-06] MEDS: ARTIFICAL TEARS SOL 15 ML OU SCH ×4 (02:54→21:44)
[2020-11-06] MEDS: SOLU-MEDROL 40MG VIAL IVP SCH ×3 (02:54→18:18)
[2020-11-06 04:02] VITALS: BP 145/55
[2020-11-06] MEDS: INSULIN HUMULIN R 100 UNIT/ML 3ML SQ SCH ×3 (05:10→16:22)
[2020-11-06] MEDS: METRONIDAZOLE 500MG/100ML BAG 100 ML IVPB SCH ×3 (05:16→21:35)
[2020-11-06] MEDS: CHLORHEXIDINE GLUCONATE 473 ML MOUTHWASH MM SCH ×4 (05:17→23:55)
[2020-11-06] MEDS: FLUOXETINE HCL 10 MG CAPSULE PO SCH (08:07)
[2020-11-06 08:17] VITALS: BP 136/73
[2020-11-06] MEDS: ENOXAPARIN SODIUM 30 MG/0.3 ML SQ SCH ×2 (08:17→21:40)
[2020-11-06] MEDS: ASCORBIC ACID 500 MG TAB PO SCH (08:17)
[2020-11-06] MEDS: BALSAM PERU/CASTOR OIL 60 GM TUBE TP SCH ×3 (09:38→21:41)
[2020-11-06] MEDS: CEFEPIME HCL 2 GM VIAL IVP SCH ×2 (11:21→23:52)
[2020-11-06 12:00] VITALS: BP 156/70
[2020-11-06 16:00] VITALS: BP 142/75
[2020-11-06 19:00] VITALS: BP 151/68
[2020-11-06] MEDS: INSULIN GLARGINE 100 UNITS/ML 10 ML VIAL SQ SCH (21:38)
[2020-11-06] MEDS: VANCOMYCIN 750MG + NS 250 ML IV SCH ×2 (22:00)
[2020-11-07] VITALS: BP 139/64
[2020-11-07] MEDS: SOLU-MEDROL 40MG VIAL IVP SCH ×3 (02:14→17:33)
[2020-11-07] MEDS: ALBUTEROL INHALER 90MCG/INH IH SCH ×6 (02:16→20:51)
[2020-11-07 04:00] VITALS: BP 140/62
[2020-11-07] MEDS: ARTIFICAL TEARS SOL 15 ML OU SCH ×4 (04:18→20:45)
[2020-11-07 05:25] LABS: BASOPHILS % (AUTO) 0.1 % (0.0-5.0); HEMATOCRIT 32.3 % (36-48); LYMPHOCYTES % (AUTO) 2.6 % (21.0-51.0); MEAN CORPUSCULAR HEMOGLOBIN 30.9 pg (27.0-33.0); MEAN CORPUSCULAR HGB CONC 32.8 g/dL (32.0-36.0); MEAN CORPUSCULAR VOLUME 94.2 fL (79-99); MONOCYTES % (AUTO) 2.6 % (3.0-13.0); NEUTROPHILS % (AUTO) 93.9 % (40.0-77.0); PLATELET COUNT (AUTO) 216 K/uL (130-400); RED BLOOD CELL COUNT(AUTO) 3.43 MIL/uL (4.00-5.50); RED CELL DISTRIBUTION WIDTH 13.7 % (11.0-15.5); WHITE BLOOD COUNT (AUTO) 22.7 K/uL (4.8-10.8)
[2020-11-07] MEDS: METRONIDAZOLE 500MG/100ML BAG 100 ML IVPB SCH ×3 (05:26→20:38)
[2020-11-07] MEDS: CHLORHEXIDINE GLUCONATE 473 ML MOUTHWASH MM SCH ×4 (05:29→20:46)
[2020-11-07 05:34] LABS: POTASSIUM 4.1 mmol/L (3.5-5.1)
[2020-11-07] MEDS: INSULIN HUMULIN R 100 UNIT/ML 3ML SQ SCH ×3 (07:30→17:33)
[2020-11-07 09:35] VITALS: BP 161/87
[2020-11-07] MEDS: ASCORBIC ACID 500 MG TAB PO SCH (09:35)
[2020-11-07] MEDS: ENOXAPARIN SODIUM 30 MG/0.3 ML SQ SCH ×2 (09:35→20:38)
[2020-11-07] MEDS: FLUOXETINE HCL 10 MG CAPSULE PO SCH (09:35)
[2020-11-07] MEDS: BALSAM PERU/CASTOR OIL 60 GM TUBE TP SCH ×3 (09:36→20:45)
[2020-11-07 12:47] VITALS: BP 153/69
[2020-11-07] MEDS: CEFEPIME HCL 2 GM VIAL IVP SCH ×2 (13:17→23:32)
[2020-11-07 18:27] VITALS: BP 158/82
[2020-11-07] MEDS: VANCOMYCIN 750MG + NS 250 ML IV SCH ×2 (20:36)
[2020-11-07] MEDS: ACETAMINOPHEN 325 MG TAB PO PRN (20:37)
[2020-11-07] MEDS: TEMAZEPAM 15 MG CAPSULE PO PRN (20:37)
[2020-11-07] MEDS: INSULIN GLARGINE 100 UNITS/ML 10 ML VIAL SQ SCH (20:41)
[2020-11-08 00:50] VITALS: BP 143/84
[2020-11-08] MEDS: SOLU-MEDROL 40MG VIAL IVP SCH ×3 (02:54→17:51)
[2020-11-08] MEDS: ALBUTEROL INHALER 90MCG/INH IH SCH ×6 (02:55→20:55)
[2020-11-08 04:47] VITALS: BP 150/69
[2020-11-08 05:11] LABS: CREATININE 1.1 mg/dL (0.5-1.5); POTASSIUM 4.4 mmol/L (3.5-5.1)
[2020-11-08] MEDS: METRONIDAZOLE 500MG/100ML BAG 100 ML IVPB SCH ×3 (05:39→20:48)
[2020-11-08] MEDS: CHLORHEXIDINE GLUCONATE 473 ML MOUTHWASH MM SCH ×4 (05:40→23:59)
[2020-11-08] MEDS: ARTIFICAL TEARS SOL 15 ML OU SCH ×4 (05:40→20:56)
[2020-11-08] MEDS: INSULIN HUMULIN R 100 UNIT/ML 3ML SQ SCH ×3 (06:37→16:59)
[2020-11-08 08:00] VITALS: BP 156/68
[2020-11-08] MEDS: FLUOXETINE HCL 10 MG CAPSULE PO SCH (09:09)
[2020-11-08] MEDS: ASCORBIC ACID 500 MG TAB PO SCH (09:09)
[2020-11-08] MEDS: BALSAM PERU/CASTOR OIL 60 GM TUBE TP SCH ×3 (09:10→20:55)
[2020-11-08] MEDS: ENOXAPARIN SODIUM 30 MG/0.3 ML SQ SCH ×2 (09:10→20:50)
[2020-11-08 12:00] VITALS: BP 151/75
[2020-11-08] MEDS: CEFEPIME HCL 2 GM VIAL IVP SCH ×2 (12:33→23:59)
[2020-11-08 16:00] VITALS: BP 149/70
[2020-11-08] MEDS ORDERED: FUROSEMIDE 40MG VIAL IV SCH (16:00)
[2020-11-08] MEDS: VANCOMYCIN 750MG + NS 250 ML IV SCH ×2 (20:52)
[2020-11-08] MEDS: INSULIN GLARGINE 100 UNITS/ML 10 ML VIAL SQ SCH (20:54)
[2020-11-08] MEDS: TEMAZEPAM 15 MG CAPSULE PO PRN (21:17)
[2020-11-08] MEDS: ACETAMINOPHEN 325 MG TAB PO PRN (21:18)
[2020-11-08 21:28] VITALS: BP 141/73
[2020-11-09 00:27] VITALS: BP 117/67
[2020-11-09] MEDS: SOLU-MEDROL 40MG VIAL IVP SCH ×3 (02:40→17:30)
[2020-11-09] MEDS: ARTIFICAL TEARS SOL 15 ML OU SCH ×4 (02:41→20:41)
[2020-11-09] MEDS: ALBUTEROL INHALER 90MCG/INH IH SCH ×6 (02:41→20:40)
[2020-11-09 05:09] VITALS: BP 89/91
[2020-11-09 05:38] LABS: ALBUMIN 2.2 g/dL (3.5-5.0); BILIRUBIN,TOTAL 0.4 mg/dL (0.2-1.0); CREATININE 1.2 mg/dL (0.5-1.5); POTASSIUM 4.2 mmol/L (3.5-5.1); TOTAL PROTEIN, SERUM 6.2 g/dL (6.0-8.3)
[2020-11-09] MEDS: METRONIDAZOLE 500MG/100ML BAG 100 ML IVPB SCH ×2 (06:08→15:53)
[2020-11-09] MEDS: CHLORHEXIDINE GLUCONATE 473 ML MOUTHWASH MM SCH ×4 (06:11→20:41)
[2020-11-09] MEDS: INSULIN HUMULIN R 100 UNIT/ML 3ML SQ SCH ×3 (06:39→16:28)
[2020-11-09 08:18] VITALS: BP 160/82
[2020-11-09] MEDS: ASCORBIC ACID 500 MG TAB PO SCH (09:49)
[2020-11-09] MEDS: ENOXAPARIN SODIUM 30 MG/0.3 ML SQ SCH ×2 (09:50→20:29)
[2020-11-09] MEDS: FLUOXETINE HCL 10 MG CAPSULE PO SCH (09:51)
[2020-11-09] MEDS: BALSAM PERU/CASTOR OIL 60 GM TUBE TP SCH ×3 (09:51→20:40)
[2020-11-09 11:52] VITALS: BP 151/71
[2020-11-09] MEDS: CEFEPIME HCL 2 GM VIAL IVP SCH (12:25)
[2020-11-09] MEDS ORDERED: FUROSEMIDE 20MG VIAL IV SCH (15:15)
[2020-11-09 16:02] VITALS: BP 128/57
[2020-11-09] MEDS: VANCOMYCIN 750MG + NS 250 ML IV SCH ×2 (20:27)
[2020-11-09] MEDS: TEMAZEPAM 15 MG CAPSULE PO PRN (20:29)
[2020-11-09] MEDS: INSULIN GLARGINE 100 UNITS/ML 10 ML VIAL SQ SCH (20:31)
[2020-11-09 21:47] VITALS: BP 144/68
[2020-11-10] VITALS (46 sets, daily range): BP systolic 95–169; BP diastolic 39–85
[2020-11-10] MEDS ORDERED: ZIPRASIDONE MESYLATE 20 MG/VIAL IM PRN (00:45)
[2020-11-10] MEDS: ALBUTEROL INHALER 90MCG/INH IH SCH ×6 (01:03→22:00)
[2020-11-10] MEDS: METRONIDAZOLE 500MG/100ML BAG 100 ML IVPB SCH ×4 (01:03→22:19)
[2020-11-10] MEDS ORDERED: ZIPRASIDONE MESYLATE 20 MG/VIAL IM ONE (01:12)
[2020-11-10] MEDS: CEFEPIME HCL 2 GM VIAL IVP SCH ×2 (01:15→12:26)
[2020-11-10] MEDS: SOLU-MEDROL 40MG VIAL IVP SCH ×2 (01:57→09:15)
[2020-11-10] MEDS: ARTIFICAL TEARS SOL 15 ML OU SCH ×4 (04:21→21:45)
[2020-11-10] MEDS: CHLORHEXIDINE GLUCONATE 473 ML MOUTHWASH MM SCH ×4 (05:56→23:17)
[2020-11-10 06:47] LABS: BILIRUBIN,TOTAL 0.5 mg/dL (0.2-1.0); CREATININE 1.2 mg/dL (0.5-1.5); POTASSIUM 4.3 mmol/L (3.5-5.1)
[2020-11-10] MEDS: INSULIN HUMULIN R 100 UNIT/ML 3ML SQ SCH ×3 (06:50→17:00)
[2020-11-10] MEDS: ASCORBIC ACID 500 MG TAB PO SCH (09:15)
[2020-11-10] MEDS: ENOXAPARIN SODIUM 30 MG/0.3 ML SQ SCH ×2 (09:15→21:24)
[2020-11-10] MEDS: FLUOXETINE HCL 10 MG CAPSULE PO SCH (09:16)
[2020-11-10] MEDS: BALSAM PERU/CASTOR OIL 60 GM TUBE TP SCH ×3 (09:34→21:45)
[2020-11-10] MEDS ORDERED: PROPOFOL 1000 MG/100 ML 100 ML IV ONE ×2 (15:49→19:37)
[2020-11-10] MEDS: SOLU-MEDROL 125MG VIAL IVP SCH ×2 (16:00→21:24)
[2020-11-10] MEDS ORDERED: PHARMACY COMMUNICATION MISC SCH (16:15)
[2020-11-10] MEDS ORDERED: SOLU-MEDROL 125MG VIAL ONE (16:23)
[2020-11-10 16:43] LABS: ABG BASE EXCESS -8.7 mmol/L (-2.0-3.0); ABG HCO3 19.5 mmol/L (21.0-28.0); ABG OXYGEN SATURATION 98.1 % (95.0-99.0); ABG PCO2 51 mmHg (32-45)
[2020-11-10] MEDS: NOREPINEPHRIN 4MG/NS 250ML 250 ML IV PRN (16:50)
[2020-11-10] MEDS: FENTANYL 2500MCG+NS 250ML 250 ML IV PRN (17:13)
[2020-11-10] MEDS: MIDAZOLAM 100MG-0.9% NS 100ML 100 ML IV PRN (19:46)
[2020-11-10] MEDS: ROCURONIUM 100 MG/NS 100ML (DRIP) IV SCH ×2 (20:17)
[2020-11-10] MEDS: VANCOMYCIN 750MG + NS 250 ML IV SCH ×2 (21:23)
[2020-11-10] MEDS: INSULIN GLARGINE 100 UNITS/ML 10 ML VIAL SQ SCH (21:44)
[2020-11-10] MEDS: PROPOFOL 1000 MG/100 ML IV PRN (22:20)
[2020-11-11] VITALS (64 sets, daily range): BP systolic 86–156; BP diastolic 35–61
[2020-11-11] MEDS: ALBUTEROL INHALER 90MCG/INH IH SCH ×6 (02:00→20:56)
[2020-11-11] MEDS: PROPOFOL 1000 MG/100 ML IV PRN ×5 (02:25→17:19)
[2020-11-11] MEDS: FENTANYL 2500MCG+NS 250ML 250 ML IV PRN ×2 (02:48→15:21)
[2020-11-11] MEDS: ARTIFICAL TEARS SOL 15 ML OU SCH ×4 (03:32→21:35)
[2020-11-11] MEDS: SOLU-MEDROL 125MG VIAL IVP SCH ×4 (03:32→21:56)
[2020-11-11 04:25] LABS: ABG BASE EXCESS -10.2 mmol/L (-2.0-3.0); ABG HCO3 17.2 mmol/L (21.0-28.0); ABG OXYGEN SATURATION 88.4 % (95.0-99.0); ABG PCO2 43 mmHg (32-45)
[2020-11-11] MEDS: CHLORHEXIDINE GLUCONATE 473 ML MOUTHWASH MM SCH ×4 (05:28→23:47)
[2020-11-11] MEDS: METRONIDAZOLE 500MG/100ML BAG 100 ML IVPB SCH ×3 (05:30→21:34)
[2020-11-11] MEDS: ROCURONIUM 100 MG/NS 100ML (DRIP) IV SCH ×6 (05:31→17:05)
[2020-11-11] MEDS: INSULIN HUMULIN R 100 UNIT/ML 3ML SQ SCH ×3 (07:33→17:07)
[2020-11-11 08:30] LABS: CREATININE 1.5 mg/dL (0.5-1.5); POTASSIUM 4.7 mmol/L (3.5-5.1)
[2020-11-11 08:49] LABS: HEMATOCRIT 30.5 % (36-48); MEAN CORPUSCULAR HGB CONC 31.8 g/dL (32.0-36.0); MEAN CORPUSCULAR VOLUME 97.4 fL (79-99); RED BLOOD CELL COUNT(AUTO) 3.13 MIL/uL (4.00-5.50); RED CELL DISTRIBUTION WIDTH 14.6 % (11.0-15.5); WHITE BLOOD COUNT (AUTO) 14.9 K/uL (4.8-10.8)
[2020-11-11] MEDS: ASCORBIC ACID 500 MG TAB PO SCH (09:24)
[2020-11-11] MEDS: FLUOXETINE HCL 10 MG CAPSULE PO SCH (09:24)
[2020-11-11] MEDS: ENOXAPARIN SODIUM 30 MG/0.3 ML SQ SCH ×2 (09:25→21:00)
[2020-11-11] MEDS: BALSAM PERU/CASTOR OIL 60 GM TUBE TP SCH ×3 (09:26→21:35)
[2020-11-11] MEDS: MIDAZOLAM 100MG-0.9% NS 100ML 100 ML IV PRN (09:30)
[2020-11-11] MEDS: CEFEPIME HCL 2 GM VIAL IVP SCH ×2 (11:18)
[2020-11-11] MEDS: NOREPINEPHRIN 4MG/NS 250ML 250 ML IV PRN (17:09)
[2020-11-11] MEDS: VANCOMYCIN 750MG + NS 250 ML IV SCH ×2 (20:31)
[2020-11-11] MEDS: INSULIN GLARGINE 100 UNITS/ML 10 ML VIAL SQ SCH (20:59)
[2020-11-12] VITALS (55 sets, daily range): BP systolic 98–151; BP diastolic 37–61
[2020-11-12] MEDS: ALBUTEROL INHALER 90MCG/INH IH SCH ×6 (00:13→21:34)
[2020-11-12] MEDS: CEFEPIME HCL 2 GM VIAL IVP SCH (01:09)
[2020-11-12] MEDS: FENTANYL 2500MCG+NS 250ML 250 ML IV PRN (01:26)
[2020-11-12] MEDS: CHLORHEXIDINE GLUCONATE 473 ML MOUTHWASH MM SCH ×4 (05:18→22:59)
[2020-11-12] MEDS: ARTIFICAL TEARS SOL 15 ML OU SCH ×4 (05:18→22:59)
[2020-11-12] MEDS: SOLU-MEDROL 125MG VIAL IVP SCH ×4 (05:18→21:40)
[2020-11-12] MEDS: METRONIDAZOLE 500MG/100ML BAG 100 ML IVPB SCH ×3 (06:15→21:40)
[2020-11-12] MEDS: INSULIN HUMULIN R 100 UNIT/ML 3ML SQ SCH ×3 (06:23→17:21)
[2020-11-12 06:58] LABS: BASOPHILS % (AUTO) 0.1 % (0.0-5.0); LYMPHOCYTES % (AUTO) 2.7 % (21.0-51.0); MEAN CORPUSCULAR HEMOGLOBIN 31.7 pg (27.0-33.0); MONOCYTES % (AUTO) 3.3 % (3.0-13.0); NEUTROPHILS % (AUTO) 91.5 % (40.0-77.0); NUCLEATED RED BLOOD CELLS 0.2 % (0.0-0.19); PLATELET COUNT (AUTO) 109 K/uL (130-400); RED BLOOD CELL COUNT(AUTO) 3.03 MIL/uL (4.00-5.50); RED CELL DISTRIBUTION WIDTH 14.7 % (11.0-15.5)
[2020-11-12] MEDS: PROPOFOL 1000 MG/100 ML IV PRN ×3 (07:06→18:24)
[2020-11-12 07:10] LABS: CREATININE 2.4 mg/dL (0.5-1.5); POTASSIUM 4.2 mmol/L (3.5-5.1)
[2020-11-12] MEDS ORDERED: 0.9% NACL 500ML IV.SOLN 500 ML IV SCH (08:15)
[2020-11-12] MEDS ORDERED: 0.9% NACL 500ML IV.SOLN 500 ML IV ONE (09:30)
[2020-11-12] MEDS: FLUOXETINE HCL 10 MG CAPSULE PO SCH (09:31)
[2020-11-12] MEDS: ASCORBIC ACID 500 MG TAB PO SCH (09:31)
[2020-11-12] MEDS: BALSAM PERU/CASTOR OIL 60 GM TUBE TP SCH ×3 (09:32→21:34)
[2020-11-12] MEDS: CEFEPIME HCL 1 GM VIAL IVP SCH ×2 (10:17→21:49)
[2020-11-12] MEDS: 0.9%NACL 1000ML 1,000 ML IV SCH (10:17)
[2020-11-12] MEDS: ENOXAPARIN SODIUM 30 MG/0.3 ML SQ SCH (10:18)
[2020-11-12] MEDS: MIDAZOLAM 100MG-0.9% NS 100ML 100 ML IV PRN (13:14)
[2020-11-12] MEDS: ROCURONIUM 100 MG/NS 100ML (DRIP) IV SCH ×2 (17:18)
[2020-11-12] MEDS: INSULIN GLARGINE 100 UNITS/ML 10 ML VIAL SQ SCH (21:31)
[2020-11-13] VITALS (34 sets, daily range): BP systolic 98–153; BP diastolic 38–51
[2020-11-13] MEDS: ALBUTEROL INHALER 90MCG/INH IH SCH ×6 (01:28→21:39)
[2020-11-13] MEDS: 0.9%NACL 1000ML 1,000 ML IV SCH (01:39)
[2020-11-13] MEDS: FENTANYL 2500MCG+NS 250ML 250 ML IV PRN (02:16)
[2020-11-13] MEDS: ARTIFICAL TEARS SOL 15 ML OU SCH ×4 (04:00→21:39)
[2020-11-13 04:23] LABS: ABG BASE EXCESS -15.4 mmol/L (-2.0-3.0); ABG HCO3 14.8 mmol/L (21.0-28.0); ABG OXYGEN SATURATION 81.4 % (95.0-99.0); ABG PCO2 52 mmHg (32-45)
[2020-11-13 04:52] LABS: WHITE BLOOD COUNT (AUTO) 18.5 K/uL (4.8-10.8)
[2020-11-13 04:53] LABS: BASOPHILS % (AUTO) 0.1 % (0.0-5.0); HEMATOCRIT 30.5 % (36-48); LYMPHOCYTES % (AUTO) 1.2 % (21.0-51.0); MEAN CORPUSCULAR HEMOGLOBIN 32.1 pg (27.0-33.0); MEAN CORPUSCULAR HGB CONC 32.1 g/dL (32.0-36.0); MONOCYTES % (AUTO) 3.8 % (3.0-13.0); NEUTROPHILS % (AUTO) 92.9 % (40.0-77.0); NUCLEATED RED BLOOD CELLS 0.3 % (0.0-0.19); PLATELET COUNT (AUTO) 108 K/uL (130-400); RED BLOOD CELL COUNT(AUTO) 3.05 MIL/uL (4.00-5.50)
[2020-11-13 05:30] LABS: ALBUMIN 1.7 g/dL (3.5-5.0); BILIRUBIN,TOTAL 0.8 mg/dL (0.2-1.0); CREATININE 2.7 mg/dL (0.5-1.5); POTASSIUM 4.7 mmol/L (3.5-5.1); TOTAL PROTEIN, SERUM 5.3 g/dL (6.0-8.3)
[2020-11-13] MEDS: CHLORHEXIDINE GLUCONATE 473 ML MOUTHWASH MM SCH ×4 (06:05→22:37)
[2020-11-13] MEDS: METRONIDAZOLE 500MG/100ML BAG 100 ML IVPB SCH ×3 (06:08→21:11)
[2020-11-13] MEDS: SOLU-MEDROL 125MG VIAL IVP SCH ×4 (06:08→21:41)
[2020-11-13] MEDS: MIDAZOLAM 100MG-0.9% NS 100ML 100 ML IV PRN (06:10)
[2020-11-13] MEDS: INSULIN HUMULIN R 100 UNIT/ML 3ML SQ SCH ×3 (06:42→17:15)
[2020-11-13] MEDS ORDERED: SODIUM BICARB 50MEQ 50ML VIAL IV SCH (08:30)
[2020-11-13] MEDS: PROPOFOL 1000 MG/100 ML IV PRN ×2 (08:59→17:13)
[2020-11-13] MEDS: FLUOXETINE HCL 20 MG CAPSULE PO SCH (09:00)
[2020-11-13] MEDS: ASCORBIC ACID 500 MG TAB PO SCH (09:00)
[2020-11-13] MEDS: SODIUM BICARBONATE 650 MG TAB NG SCH ×3 (09:00→21:11)
[2020-11-13] MEDS: ENOXAPARIN SODIUM 30 MG/0.3 ML SQ SCH (09:00)
[2020-11-13] MEDS: BALSAM PERU/CASTOR OIL 60 GM TUBE TP SCH ×3 (09:02→21:39)
[2020-11-13] MEDS: CEFEPIME HCL 1 GM VIAL IVP SCH ×2 (09:57→21:41)
[2020-11-13] MEDS: SODIUM BICARB 8.4% 50ML SYRING 150 MEQ in DEXTROSE 5%-WATER 1,000 ML IVP SCH ×2 (09:57→21:11)
[2020-11-13] MEDS: ROCURONIUM 100 MG/NS 100ML (DRIP) IV SCH ×2 (14:30)
[2020-11-13] MEDS: NOREPINEPHRIN 4MG/NS 250ML 250 ML IV PRN (17:15)
[2020-11-13] MEDS: VANCOMYCIN 750MG + NS 250 ML IV SCH ×2 (21:11)
[2020-11-13] MEDS: INSULIN GLARGINE 100 UNITS/ML 10 ML VIAL SQ SCH (21:14)
[2020-11-14] VITALS (33 sets, daily range): BP systolic 110–152; BP diastolic 37–51
[2020-11-14] MEDS: PROPOFOL 1000 MG/100 ML IV PRN (00:27)
[2020-11-14] MEDS: ALBUTEROL INHALER 90MCG/INH IH SCH ×6 (02:00→20:14)
[2020-11-14] MEDS: FENTANYL 2500MCG+NS 250ML 250 ML IV PRN (02:58)
[2020-11-14] MEDS: ARTIFICAL TEARS SOL 15 ML OU SCH ×4 (04:00→22:01)
[2020-11-14] MEDS: SOLU-MEDROL 125MG VIAL IVP SCH ×4 (04:00→21:14)
[2020-11-14 06:23] LABS: BASOPHILS % (AUTO) 0.1 % (0.0-5.0); LYMPHOCYTES % (AUTO) 1.8 % (21.0-51.0); MEAN CORPUSCULAR HEMOGLOBIN 32.2 pg (27.0-33.0); MEAN CORPUSCULAR HGB CONC 33.5 g/dL (32.0-36.0); MEAN CORPUSCULAR VOLUME 96.3 fL (79-99); MONOCYTES % (AUTO) 4.2 % (3.0-13.0); NEUTROPHILS % (AUTO) 90.6 % (40.0-77.0); NUCLEATED RED BLOOD CELLS 0.7 % (0.0-0.19); PLATELET COUNT (AUTO) 88 K/uL (130-400); RED CELL DISTRIBUTION WIDTH 15.9 % (11.0-15.5); WHITE BLOOD COUNT (AUTO) 15.9 K/uL (4.8-10.8)
[2020-11-14] MEDS: INSULIN HUMULIN R 100 UNIT/ML 3ML SQ SCH ×3 (06:27→17:02)
[2020-11-14] MEDS: SODIUM BICARB 8.4% 50ML SYRING 150 MEQ in DEXTROSE 5%-WATER 1,000 ML IVP SCH (06:28)
[2020-11-14] MEDS: METRONIDAZOLE 500MG/100ML BAG 100 ML IVPB SCH ×3 (06:28→21:14)
[2020-11-14] MEDS: CHLORHEXIDINE GLUCONATE 473 ML MOUTHWASH MM SCH ×4 (06:28→22:01)
[2020-11-14 06:45] LABS: ALBUMIN 1.4 g/dL (3.5-5.0); BILIRUBIN,TOTAL 0.8 mg/dL (0.2-1.0); CREATININE 3.6 mg/dL (0.5-1.5); MAGNESIUM 1.8 mg/dL (1.80-2.40); PHOSPHORUS 5.1 mg/dL (2.5-4.9); POTASSIUM 4.4 mmol/L (3.5-5.1); TOTAL PROTEIN, SERUM 4.4 g/dL (6.0-8.3); URIC ACID 5.6 mg/dL (2.6-7.2)
[2020-11-14] MEDS: MIDAZOLAM 100MG-0.9% NS 100ML 100 ML IV PRN (10:45)
[2020-11-14] MEDS: CEFEPIME HCL 1 GM VIAL IVP SCH ×2 (10:45→20:57)
[2020-11-14] MEDS: ENOXAPARIN SODIUM 30 MG/0.3 ML SQ SCH (10:46)
[2020-11-14] MEDS: SODIUM BICARBONATE 650 MG TAB NG SCH ×3 (10:46→20:57)
[2020-11-14] MEDS: FLUOXETINE HCL 20 MG CAPSULE PO SCH (10:46)
[2020-11-14] MEDS: ASCORBIC ACID 500 MG TAB PO SCH (10:46)
[2020-11-14] MEDS: BALSAM PERU/CASTOR OIL 60 GM TUBE TP SCH ×3 (10:47→20:57)
[2020-11-14] MEDS: INSULIN GLARGINE 100 UNITS/ML 10 ML VIAL SQ SCH (21:08)
[2020-11-15] VITALS (32 sets, daily range): BP systolic 107–136; BP diastolic 38–54
[2020-11-15] MEDS: ALBUTEROL INHALER 90MCG/INH IH SCH ×6 (02:00→21:20)
[2020-11-15] MEDS: FENTANYL 2500MCG+NS 250ML 250 ML IV PRN (04:19)
[2020-11-15] MEDS: MIDAZOLAM 100MG-0.9% NS 100ML 100 ML IV PRN (04:20)
[2020-11-15] MEDS: ARTIFICAL TEARS SOL 15 ML OU SCH ×4 (04:53→21:40)
[2020-11-15] MEDS: CHLORHEXIDINE GLUCONATE 473 ML MOUTHWASH MM SCH ×4 (04:53→22:05)
[2020-11-15] MEDS: SOLU-MEDROL 125MG VIAL IVP SCH ×4 (05:44→21:40)
[2020-11-15] MEDS: INSULIN HUMULIN R 100 UNIT/ML 3ML SQ SCH ×3 (06:17→16:40)
[2020-11-15] MEDS: METRONIDAZOLE 500MG/100ML BAG 100 ML IVPB SCH (06:17)
[2020-11-15 06:34] LABS: BASOPHILS % (AUTO) 0.2 % (0.0-5.0); CREATININE 4.3 mg/dL (0.5-1.5); EOSINOPHILS % (AUTO) 1.5 % (0.0-8.0); HEMATOCRIT 28.5 % (36-48); LYMPHOCYTES % (AUTO) 2.3 % (21.0-51.0); MEAN CORPUSCULAR HEMOGLOBIN 31.2 pg (27.0-33.0); MEAN CORPUSCULAR VOLUME 94.7 fL (79-99); MONOCYTES % (AUTO) 5.2 % (3.0-13.0); NEUTROPHILS % (AUTO) 87.9 % (40.0-77.0); NUCLEATED RED BLOOD CELLS 0.8 % (0.0-0.19); PLATELET COUNT (AUTO) 108 K/uL (130-400); POTASSIUM 4.5 mmol/L (3.5-5.1); RED BLOOD CELL COUNT(AUTO) 3.01 MIL/uL (4.00-5.50); RED CELL DISTRIBUTION WIDTH 16.7 % (11.0-15.5); WHITE BLOOD COUNT (AUTO) 17.7 K/uL (4.8-10.8)
[2020-11-15] MEDS: ASCORBIC ACID 500 MG TAB PO SCH (09:16)
[2020-11-15] MEDS: FLUOXETINE HCL 20 MG CAPSULE PO SCH (09:17)
[2020-11-15] MEDS: SODIUM BICARBONATE 650 MG TAB NG SCH ×3 (09:17→21:29)
[2020-11-15] MEDS: CEFEPIME HCL 1 GM VIAL IVP SCH ×2 (09:17→21:29)
[2020-11-15] MEDS: ENOXAPARIN SODIUM 30 MG/0.3 ML SQ SCH (09:18)
[2020-11-15] MEDS: BALSAM PERU/CASTOR OIL 60 GM TUBE TP SCH ×3 (09:19→21:40)
[2020-11-15] MEDS: VANCOMYCIN 750MG + NS 250 ML IV SCH ×2 (09:37)
[2020-11-15] MEDS ORDERED: FUROSEMIDE 40MG VIAL IV SCH (12:15)
[2020-11-15 17:12] LABS: APPEARANCE,URINE CLEAR (CLEAR); BILIRUBIN,URINE NEGATIVE (NEGATIVE); COLOR,URINE YELLOW (YELLOW); GLUCOSE, URINE (UA) NEGATIVE (NEGATIVE); KETONES,URINE NEGATIVE (NEGATIVE); LEUKOCYTE ESTERASE ,URINE MODERATE (NEGATIVE); NITRATE,URINE NEGATIVE (NEGATIVE); OCCULT BLOOD,URINE LARGE (NEGATIVE); PROTEIN,URINE 100 mg/dL (NEGATIVE); UROBILINOGEN,URINE 0.2 mg/dL (0.2-1.0)
[2020-11-15 17:13] LABS: CHLORIDE,URINE RANDOM 92 mmol/L (110-250); CREATININE,URINE RANDOM 25 mg/dL (30-135); POTASSIUM,URINE RANDOM 17 mmol/L (25-125); SODIUM,URINE RANDOM 98 mmol/l (40-220)
[2020-11-15 17:27] LABS: BACTERIA,URINE Few /HPF (None Seen); RBC,URINE 0-1 /HPF (0-1)
[2020-11-15 17:28] LABS: SQUAMOUS EPITHELIAL CELL,UR Rare /HPF (0-2)
[2020-11-15 17:29] LABS: YEAST,URINE BUDDING Moderate /HPF (None Seen)
[2020-11-15 17:30] LABS: AMORPHOUS SEDIMENT,UR Rare /LPF (None Seen)
[2020-11-15] MEDS: INSULIN GLARGINE 100 UNITS/ML 10 ML VIAL SQ SCH (22:05)
[2020-11-16] VITALS (22 sets, daily range): BP systolic 79–143; BP diastolic 31–89
[2020-11-16] MEDS: ALBUTEROL INHALER 90MCG/INH IH SCH ×6 (02:00→21:30)
[2020-11-16] MEDS: SOLU-MEDROL 125MG VIAL IVP SCH ×4 (04:00→20:34)
[2020-11-16] MEDS: ARTIFICAL TEARS SOL 15 ML OU SCH ×4 (04:51→20:51)
[2020-11-16] MEDS: CHLORHEXIDINE GLUCONATE 473 ML MOUTHWASH MM SCH ×4 (04:51→23:45)
[2020-11-16] MEDS: INSULIN HUMULIN R 100 UNIT/ML 3ML SQ SCH ×3 (06:25→17:10)
[2020-11-16 06:53] LABS: BASOPHILS % (AUTO) 0.2 % (0.0-5.0); EOSINOPHILS % (AUTO) 0.2 % (0.0-8.0); HEMATOCRIT 28.5 % (36-48); LYMPHOCYTES % (AUTO) 2.9 % (21.0-51.0); MEAN CORPUSCULAR HEMOGLOBIN 31.6 pg (27.0-33.0); MEAN CORPUSCULAR HGB CONC 32.3 g/dL (32.0-36.0); MEAN CORPUSCULAR VOLUME 97.9 fL (79-99); MONOCYTES % (AUTO) 4.3 % (3.0-13.0); NEUTROPHILS % (AUTO) 90.2 % (40.0-77.0); NUCLEATED RED BLOOD CELLS 0.8 % (0.0-0.19); PLATELET COUNT (AUTO) 141 K/uL (130-400); RED BLOOD CELL COUNT(AUTO) 2.91 MIL/uL (4.00-5.50); RED CELL DISTRIBUTION WIDTH 18.2 % (11.0-15.5); WHITE BLOOD COUNT (AUTO) 19.4 K/uL (4.8-10.8)
[2020-11-16] MEDS: SODIUM BICARBONATE 650 MG TAB NG SCH ×3 (09:22→20:35)
[2020-11-16] MEDS: FLUOXETINE HCL 20 MG CAPSULE PO SCH (09:22)
[2020-11-16] MEDS: ASCORBIC ACID 500 MG TAB PO SCH (09:22)
[2020-11-16] MEDS: CEFEPIME HCL 1 GM VIAL IVP SCH ×2 (09:23→20:34)
[2020-11-16] MEDS: BALSAM PERU/CASTOR OIL 60 GM TUBE TP SCH ×3 (09:25→20:51)
[2020-11-16] MEDS: ENOXAPARIN SODIUM 30 MG/0.3 ML SQ SCH (09:25)
[2020-11-16] MEDS: NOREPINEPHRIN 4MG/NS 250ML 250 ML IV PRN ×2 (10:47→20:44)
[2020-11-16] MEDS ORDERED: KAYEXALATE 15GM/60ML PO SCH (12:00)
[2020-11-16] MEDS ORDERED: FUROSEMIDE 40MG VIAL IV SCH (12:00)
[2020-11-16] MEDS: AMIODARONE 150MG VIAL 150 MG in DEXTROSE 5%-WATER 100 ML IV SCH ×2 (16:45→20:56)
[2020-11-16] MEDS: AMIODARONE 900MG VIAL 360 MG in DEXTROSE 5%-WATER 200 ML IV SCH ×2 (16:55→21:03)
[2020-11-16] MEDS: INSULIN GLARGINE 100 UNITS/ML 10 ML VIAL SQ SCH (20:49)
[2020-11-17] VITALS (46 sets, daily range): BP systolic 60–147; BP diastolic 31–52
[2020-11-17] MEDS: ALBUTEROL INHALER 90MCG/INH IH SCH ×4 (02:00→14:27)
[2020-11-17] MEDS: SOLU-MEDROL 125MG VIAL IVP SCH ×4 (05:32→20:13)
[2020-11-17] MEDS: CHLORHEXIDINE GLUCONATE 473 ML MOUTHWASH MM SCH ×2 (05:34→13:07)
[2020-11-17] MEDS: ARTIFICAL TEARS SOL 15 ML OU SCH ×3 (05:34→17:16)
[2020-11-17] MEDS: INSULIN HUMULIN R 100 UNIT/ML 3ML SQ SCH ×3 (07:45→17:44)
[2020-11-17] MEDS: NOREPINEPHRIN 4MG/NS 250ML 250 ML IV PRN (07:46)
[2020-11-17 07:47] LABS: MEAN CORPUSCULAR HEMOGLOBIN 31.6 pg (27.0-33.0); MEAN CORPUSCULAR VOLUME 95.7 fL (79-99); NUCLEATED RED BLOOD CELLS 0.9 % (0.0-0.19); PLATELET COUNT (AUTO) 127 K/uL (130-400); RED BLOOD CELL COUNT(AUTO) 2.82 MIL/uL (4.00-5.50); RED CELL DISTRIBUTION WIDTH 18.1 % (11.0-15.5)
[2020-11-17 07:55] LABS: ALBUMIN 1.5 g/dL (3.5-5.0); BILIRUBIN,TOTAL 0.9 mg/dL (0.2-1.0); CREATININE 5.5 mg/dL (0.5-1.5); POTASSIUM 5.1 mmol/L (3.5-5.1); TOTAL PROTEIN, SERUM 4.8 g/dL (6.0-8.3)
[2020-11-17] MEDS: VANCOMYCIN 750MG + NS 250 ML IV SCH ×2 (09:00)
[2020-11-17 09:22] LABS: BAND NEUTROPHILS % (MANUAL) 1 % (0-2); LYMPHOCYTES % (MANUAL) 1 % (22-44); MONOCYTES % (MANUAL) 3 % (2-9); SEGMENTED NEUTROPHILS % 95 % (40-70)
[2020-11-17 09:23] LABS: MAN.DIFF COMMENT-IMPRESSION MANUAL DIFFERENTIAL; PLATELET MORPHOLOGY COMMENT ADEQUATE
[2020-11-17] MEDS: FLUOXETINE HCL 20 MG CAPSULE PO SCH (09:34)
[2020-11-17] MEDS: ASCORBIC ACID 500 MG TAB PO SCH (09:34)
[2020-11-17] MEDS: SODIUM BICARBONATE 650 MG TAB NG SCH ×3 (09:34→20:14)
[2020-11-17] MEDS: ENOXAPARIN SODIUM 30 MG/0.3 ML SQ SCH (09:35)
[2020-11-17] MEDS: CEFEPIME HCL 1 GM VIAL IVP SCH ×2 (09:35→20:13)
[2020-11-17] MEDS: BALSAM PERU/CASTOR OIL 60 GM TUBE TP SCH ×3 (09:35→20:51)
[2020-11-17] MEDS: AMIODARONE 200 MG TABLET PO SCH ×2 (10:26→20:14)
[2020-11-17 12:50] LABS: HEMATOCRIT 28.3 % (36-48)
[2020-11-17 12:59] LABS: HEMOGLOBIN A1C 9.7 % (4.0-6.0)
[2020-11-17 13:03] LABS: ALBUMIN 1.7 g/dL (3.5-5.0); CREATININE 4.4 mg/dL (0.5-1.5)
[2020-11-17 13:56] LABS: % IRON SATURATION 156.4 % (22-44)
[2020-11-17] MEDS: MIDAZOLAM 100MG-0.9% NS 100ML 100 ML IV PRN (14:03)
[2020-11-17] MEDS ORDERED: NOREPINEPHRIN 4MG/NS 250ML 250 ML IV SCH (18:45)
[2020-11-17] MEDS ORDERED: NOREPINEPHRIN 4MG/NS 250ML 250 ML IV ONE (19:43)
[2020-11-17] MEDS: INSULIN GLARGINE 100 UNITS/ML 10 ML VIAL SQ SCH (20:53)
[2020-11-18] VITALS (70 sets, daily range): BP systolic 78–154; BP diastolic 27–51
[2020-11-18] MEDS: MIDAZOLAM 100MG-0.9% NS 100ML 100 ML IV PRN (05:12)
[2020-11-18] MEDS: SOLU-MEDROL 125MG VIAL IVP SCH ×4 (05:27→23:47)
[2020-11-18] MEDS ORDERED: FENTANYL CITRATE PF 0.05 MG/ML 1,000 MCG in 0.9%NACL 100ML 100 ML IVPB SCH (06:15)
[2020-11-18] MEDS ORDERED: FENTANYL 2500MCG+NS 250ML 250 ML IV ONE (06:22)
[2020-11-18] MEDS ORDERED: FENTANYL 2500MCG+NS 250ML 250 ML IV SCH (07:00)
[2020-11-18] MEDS: SODIUM BICARBONATE 650 MG TAB NG SCH ×3 (08:09→23:47)
[2020-11-18] MEDS: FLUOXETINE HCL 20 MG CAPSULE PO SCH (08:09)
[2020-11-18] MEDS: AMIODARONE 200 MG TABLET PO SCH ×2 (08:09→23:47)
[2020-11-18] MEDS: INSULIN HUMULIN R 100 UNIT/ML 3ML SQ SCH ×3 (08:12→17:33)
[2020-11-18 08:14] LABS: BASOPHILS % (AUTO) 0.2 % (0.0-5.0); EOSINOPHILS % (AUTO) 3.5 % (0.0-8.0); HEMATOCRIT 24.2 % (36-48); LYMPHOCYTES % (AUTO) 2.6 % (21.0-51.0); MEAN CORPUSCULAR HEMOGLOBIN 33.3 pg (27.0-33.0); MEAN CORPUSCULAR HGB CONC 35.1 g/dL (32.0-36.0); MEAN CORPUSCULAR VOLUME 94.9 fL (79-99); MONOCYTES % (AUTO) 3.8 % (3.0-13.0); NEUTROPHILS % (AUTO) 88.6 % (40.0-77.0); NUCLEATED RED BLOOD CELLS 1.6 % (0.0-0.19); PLATELET COUNT (AUTO) 101 K/uL (130-400); RED BLOOD CELL COUNT(AUTO) 2.55 MIL/uL (4.00-5.50); RED CELL DISTRIBUTION WIDTH 18.6 % (11.0-15.5)
[2020-11-18] MEDS: BALSAM PERU/CASTOR OIL 60 GM TUBE TP SCH ×3 (08:17→21:00)
[2020-11-18 08:22] LABS: ALBUMIN 1.5 g/dL (3.5-5.0); BILIRUBIN,TOTAL 0.8 mg/dL (0.2-1.0); CREATININE 4.9 mg/dL (0.5-1.5); POTASSIUM 4.3 mmol/L (3.5-5.1); TOTAL PROTEIN, SERUM 4.8 g/dL (6.0-8.3)
[2020-11-18] MEDS: CEFEPIME HCL 1 GM VIAL IVP SCH ×2 (10:15→23:47)
[2020-11-18] MEDS: ENOXAPARIN SODIUM 30 MG/0.3 ML SQ SCH (10:15)
[2020-11-18 14:11] LABS: HEPATITIS Bs ANTIGEN SCREEN P Negative (Negative)
[2020-11-18] MEDS: VANCOMYCIN 500MG+NS 100ML 100 ML IV SCH (17:31)
[2020-11-18] MEDS ORDERED: HEPARIN 5,000 UNIT VIAL IJ PRN (18:00)
[2020-11-18] MEDS ORDERED: NITROGLYCERIN 0.4 MG SL TAB SL PRN (18:00)
[2020-11-18] MEDS ORDERED: LIDOCAINE HCL-MPF 1% 2ML VIAL IJ PRN (18:00)
[2020-11-18] MEDS ORDERED: ALBUMIN FOR BP SUPPORT MISC PRN (18:00)
[2020-11-18] MEDS ORDERED: 0.9%NACL 1000ML IV PRN (18:00)
[2020-11-18] MEDS ORDERED: 0.9%NACL 1000ML 1,000 ML IV PRN (18:00)
[2020-11-18] MEDS ORDERED: ACETAMINOPHEN 325 MG TAB PO PRN (18:00)
[2020-11-18] MEDS: INSULIN GLARGINE 100 UNITS/ML 10 ML VIAL SQ SCH (23:55)
[2020-11-19] VITALS (40 sets, daily range): BP systolic 106–157; BP diastolic 32–54
[2020-11-19] MEDS: SOLU-MEDROL 125MG VIAL IVP SCH ×4 (04:54→22:45)
[2020-11-19] MEDS: INSULIN HUMULIN R 100 UNIT/ML 3ML SQ SCH ×3 (06:21→16:11)
[2020-11-19 07:46] LABS: BASOPHILS % (AUTO) 0.3 % (0.0-5.0); EOSINOPHILS % (AUTO) 4.1 % (0.0-8.0); HEMATOCRIT 22.8 % (36-48); MEAN CORPUSCULAR HGB CONC 34.6 g/dL (32.0-36.0); MEAN CORPUSCULAR VOLUME 92.3 fL (79-99); MONOCYTES % (AUTO) 3.3 % (3.0-13.0); NEUTROPHILS % (AUTO) 88.6 % (40.0-77.0); NUCLEATED RED BLOOD CELLS 3.7 % (0.0-0.19); PLATELET COUNT (AUTO) 98 K/uL (130-400); RED BLOOD CELL COUNT(AUTO) 2.47 MIL/uL (4.00-5.50); RED CELL DISTRIBUTION WIDTH 18.5 % (11.0-15.5); WHITE BLOOD COUNT (AUTO) 14.5 K/uL (4.8-10.8)
[2020-11-19 08:04] LABS: ALBUMIN 1.5 g/dL (3.5-5.0); BILIRUBIN,TOTAL 0.7 mg/dL (0.2-1.0); CREATININE 3.6 mg/dL (0.5-1.5); MAGNESIUM 2.2 mg/dL (1.80-2.40); PHOSPHORUS 5.6 mg/dL (2.5-4.9); POTASSIUM 3.9 mmol/L (3.5-5.1); TOTAL PROTEIN, SERUM 4.7 g/dL (6.0-8.3)
[2020-11-19] MEDS: SODIUM BICARBONATE 650 MG TAB NG SCH ×3 (08:27→22:44)
[2020-11-19] MEDS: FLUOXETINE HCL 20 MG CAPSULE PO SCH (08:27)
[2020-11-19] MEDS: AMIODARONE 200 MG TABLET PO SCH ×2 (08:27→22:44)
[2020-11-19] MEDS: BALSAM PERU/CASTOR OIL 60 GM TUBE TP SCH ×3 (08:28→22:45)
[2020-11-19] MEDS: ENOXAPARIN SODIUM 30 MG/0.3 ML SQ SCH ×2 (09:00→10:54)
[2020-11-19] MEDS: CEFEPIME HCL 1 GM VIAL IVP SCH ×2 (09:18→22:45)
[2020-11-19] MEDS: NOREPINEPHRINE BITARTRATE 8 MG/NS 250ML IV SCH ×2 (18:25)
[2020-11-20] VITALS (67 sets, daily range): BP systolic 85–150; BP diastolic 32–58
[2020-11-20] MEDS: INSULIN GLARGINE 100 UNITS/ML 10 ML VIAL SQ SCH ×2 (01:30→21:08)
[2020-11-20 05:56] LABS: BASOPHILS % (AUTO) 0.4 % (0.0-5.0); EOSINOPHILS % (AUTO) 2.9 % (0.0-8.0); LYMPHOCYTES % (AUTO) 2.8 % (21.0-51.0); MEAN CORPUSCULAR HEMOGLOBIN 31.8 pg (27.0-33.0); MEAN CORPUSCULAR HGB CONC 34.2 g/dL (32.0-36.0); MEAN CORPUSCULAR VOLUME 92.9 fL (79-99); MONOCYTES % (AUTO) 2.7 % (3.0-13.0); NEUTROPHILS % (AUTO) 90.3 % (40.0-77.0); NUCLEATED RED BLOOD CELLS 3.1 % (0.0-0.19); PLATELET COUNT (AUTO) 68 K/uL (130-400); RED BLOOD CELL COUNT(AUTO) 1.98 MIL/uL (4.00-5.50); RED CELL DISTRIBUTION WIDTH 18.9 % (11.0-15.5); WHITE BLOOD COUNT (AUTO) 10.6 K/uL (4.8-10.8)
[2020-11-20 06:11] LABS: HEMATOCRIT 18.4 % (36-48)
[2020-11-20 06:13] LABS: ALBUMIN 1.3 g/dL (3.5-5.0); BILIRUBIN,TOTAL 0.7 mg/dL (0.2-1.0); CREATININE 4.8 mg/dL (0.5-1.5); POTASSIUM 4.2 mmol/L (3.5-5.1); TOTAL PROTEIN, SERUM 4.4 g/dL (6.0-8.3)
[2020-11-20] MEDS: SOLU-MEDROL 125MG VIAL IVP SCH ×4 (06:55→21:12)
[2020-11-20] MEDS: INSULIN HUMULIN R 100 UNIT/ML 3ML SQ SCH ×3 (06:58→17:14)
[2020-11-20] MEDS: ENOXAPARIN SODIUM 30 MG/0.3 ML SQ SCH (09:00)
[2020-11-20] MEDS: FLUOXETINE HCL 20 MG CAPSULE PO SCH (11:12)
[2020-11-20] MEDS: CEFEPIME HCL 1 GM VIAL IVP SCH ×2 (11:12→21:06)
[2020-11-20] MEDS: AMIODARONE 200 MG TABLET PO SCH ×2 (11:12→21:06)
[2020-11-20] MEDS: SODIUM BICARBONATE 650 MG TAB NG SCH ×3 (11:12→21:07)
[2020-11-20] MEDS: BALSAM PERU/CASTOR OIL 60 GM TUBE TP SCH ×3 (11:13→21:07)
[2020-11-20] MEDS ORDERED: EPOETIN ALFA-EPBX (ESRD) 10,000 UNIT/ML VIAL SQ SCH (14:45)
[2020-11-20] MEDS: VANCOMYCIN 500MG+NS 100ML 100 ML IV SCH (17:16)
[2020-11-21] VITALS (87 sets, daily range): BP systolic 108–147; BP diastolic 36–53
[2020-11-21 04:41] LABS: BASOPHILS % (AUTO) 0.3 % (0.0-5.0); EOSINOPHILS % (AUTO) 18.6 % (0.0-8.0); HEMATOCRIT 21.2 % (36-48); LYMPHOCYTES % (AUTO) 2.5 % (21.0-51.0); MEAN CORPUSCULAR HEMOGLOBIN 30.1 pg (27.0-33.0); MEAN CORPUSCULAR VOLUME 88.7 fL (79-99); MONOCYTES % (AUTO) 2.2 % (3.0-13.0); NUCLEATED RED BLOOD CELLS 6.8 % (0.0-0.19); PLATELET COUNT (AUTO) 66 K/uL (130-400); RED BLOOD CELL COUNT(AUTO) 2.39 MIL/uL (4.00-5.50); RED CELL DISTRIBUTION WIDTH 20.3 % (11.0-15.5); WHITE BLOOD COUNT (AUTO) 10.4 K/uL (4.8-10.8)
[2020-11-21 04:51] LABS: ALBUMIN 1.3 g/dL (3.5-5.0); BILIRUBIN,TOTAL 0.7 mg/dL (0.2-1.0); CREATININE 3.1 mg/dL (0.5-1.5); PHOSPHORUS 4.4 mg/dL (2.5-4.9); POTASSIUM 3.8 mmol/L (3.5-5.1); TOTAL PROTEIN, SERUM 4.5 g/dL (6.0-8.3)
[2020-11-21] MEDS: SOLU-MEDROL 125MG VIAL IVP SCH ×4 (05:00→21:03)
[2020-11-21] MEDS: INSULIN HUMULIN R 100 UNIT/ML 3ML SQ SCH ×3 (06:10→16:50)
[2020-11-21] MEDS: ENOXAPARIN SODIUM 30 MG/0.3 ML SQ SCH (09:00)
[2020-11-21] MEDS: BALSAM PERU/CASTOR OIL 60 GM TUBE TP SCH ×3 (09:11→21:04)
[2020-11-21] MEDS: AMIODARONE 200 MG TABLET PO SCH ×2 (09:11→21:03)
[2020-11-21] MEDS: FLUOXETINE HCL 20 MG CAPSULE PO SCH (09:11)
[2020-11-21] MEDS: CEFEPIME HCL 1 GM VIAL IVP SCH ×2 (09:11→21:03)
[2020-11-21] MEDS: SODIUM BICARBONATE 650 MG TAB NG SCH ×3 (09:11→21:03)
[2020-11-21] MEDS ORDERED: LORAZEPAM 2 MG/ML 1 ML VIAL IM PRN (13:30)
[2020-11-21] MEDS: INSULIN GLARGINE 100 UNITS/ML 10 ML VIAL SQ SCH (21:04)
[2020-11-22] VITALS (71 sets, daily range): BP systolic 82–134; BP diastolic 25–57
[2020-11-22] MEDS: SOLU-MEDROL 125MG VIAL IVP SCH ×4 (05:00→22:56)
[2020-11-22] MEDS: INSULIN HUMULIN R 100 UNIT/ML 3ML SQ SCH ×3 (06:55→16:54)
[2020-11-22] MEDS: AMIODARONE 200 MG TABLET PO SCH ×2 (08:31→22:56)
[2020-11-22] MEDS: FLUOXETINE HCL 20 MG CAPSULE PO SCH (08:31)
[2020-11-22] MEDS: BALSAM PERU/CASTOR OIL 60 GM TUBE TP SCH ×3 (08:31→22:57)
[2020-11-22] MEDS: SODIUM BICARBONATE 650 MG TAB NG SCH ×3 (08:31→22:56)
[2020-11-22 08:43] LABS: BASOPHILS % (AUTO) 0.5 % (0.0-5.0); EOSINOPHILS % (AUTO) 4.3 % (0.0-8.0); LYMPHOCYTES % (AUTO) 3.4 % (21.0-51.0); MEAN CORPUSCULAR HEMOGLOBIN 29.3 pg (27.0-33.0); MEAN CORPUSCULAR VOLUME 88.8 fL (79-99); MONOCYTES % (AUTO) 2.1 % (3.0-13.0); NEUTROPHILS % (AUTO) 88.1 % (40.0-77.0); PLATELET COUNT (AUTO) 48 K/uL (130-400); RED BLOOD CELL COUNT(AUTO) 2.32 MIL/uL (4.00-5.50); RED CELL DISTRIBUTION WIDTH 20.3 % (11.0-15.5); WHITE BLOOD COUNT (AUTO) 7.7 K/uL (4.8-10.8)
[2020-11-22 08:50] LABS: HEMATOCRIT 20.6 % (36-48)
[2020-11-22 08:53] LABS: ALBUMIN 1.2 g/dL (3.5-5.0); BILIRUBIN,TOTAL 0.6 mg/dL (0.2-1.0); CREATININE 3.6 mg/dL (0.5-1.5); PHOSPHORUS 5.1 mg/dL (2.5-4.9); TOTAL PROTEIN, SERUM 4.4 g/dL (6.0-8.3)
[2020-11-22] MEDS: ENOXAPARIN SODIUM 30 MG/0.3 ML SQ SCH (09:00)
[2020-11-22 10:02] LABS: BAND NEUTROPHILS % (MANUAL) 3 % (0-2); LYMPHOCYTES % (MANUAL) 2 % (22-44); MONOCYTES % (MANUAL) 4 % (2-9); NUCLEATED RED BLOOD CELLS 7.6 % (0.0-0.19); SEGMENTED NEUTROPHILS % 91 % (40-70)
[2020-11-22 10:07] LABS: PLATELET MORPHOLOGY COMMENT MARKED DECREASE
[2020-11-22 10:08] LABS: MAN.DIFF COMMENT-IMPRESSION MANUAL DIFFERENTIAL
[2020-11-22] MEDS: CEFEPIME HCL 1 GM VIAL IVP SCH ×2 (10:26→22:56)
[2020-11-22] MEDS: INSULIN GLARGINE 100 UNITS/ML 10 ML VIAL SQ SCH (22:58)
[2020-11-22] MEDS: NOREPINEPHRINE BITARTRATE 8 MG/NS 250ML IV SCH ×2 (23:12)
[2020-11-23] VITALS (62 sets, daily range): BP systolic 108–151; BP diastolic 33–82
[2020-11-23] MEDS: SOLU-MEDROL 125MG VIAL IVP SCH ×4 (06:00→20:50)
[2020-11-23] MEDS: INSULIN HUMULIN R 100 UNIT/ML 3ML SQ SCH ×3 (06:18→17:51)
[2020-11-23] MEDS: BALSAM PERU/CASTOR OIL 60 GM TUBE TP SCH ×3 (09:00→20:59)
[2020-11-23] MEDS: FLUOXETINE HCL 20 MG CAPSULE PO SCH (09:41)
[2020-11-23] MEDS: AMIODARONE 200 MG TABLET PO SCH ×2 (09:41→20:50)
[2020-11-23] MEDS: CEFEPIME HCL 1 GM VIAL IVP SCH ×2 (09:41→20:50)
[2020-11-23] MEDS: SODIUM BICARBONATE 650 MG TAB NG SCH ×3 (09:41→20:50)
[2020-11-23 13:08] LABS: ABG BASE EXCESS -4.2 mmol/L (-2.0-3.0); ABG HCO3 26.8 mmol/L (21.0-28.0); ABG OXYGEN SATURATION 97.5 % (95.0-99.0); ABG PCO2 79 mmHg (32-45)
[2020-11-23 13:27] LABS: HEMATOCRIT 25.2 % (36-48)
[2020-11-23 15:26] LABS: ABG BASE EXCESS -0.8 mmol/L (-2.0-3.0); ABG HCO3 28.7 mmol/L (21.0-28.0); ABG OXYGEN SATURATION 96.4 % (95.0-99.0); ABG PCO2 70 mmHg (32-45)
[2020-11-23] MEDS: INSULIN GLARGINE 100 UNITS/ML 10 ML VIAL SQ SCH (20:56)
[2020-11-24] VITALS (60 sets, daily range): BP systolic 86–150; BP diastolic 34–63
[2020-11-24 03:51] LABS: ABG BASE EXCESS -0.8 mmol/L (-2.0-3.0); ABG HCO3 26.5 mmol/L (21.0-28.0); ABG OXYGEN SATURATION 94.6 % (95.0-99.0); ABG PCO2 55 mmHg (32-45)
[2020-11-24] MEDS: SOLU-MEDROL 125MG VIAL IVP SCH ×4 (05:30→22:16)
[2020-11-24 06:00] LABS: BASOPHILS % (AUTO) 0.4 % (0.0-5.0); EOSINOPHILS % (AUTO) 0.4 % (0.0-8.0); HEMATOCRIT 22.9 % (36-48); LYMPHOCYTES % (AUTO) 2.9 % (21.0-51.0); MEAN CORPUSCULAR HEMOGLOBIN 30.1 pg (27.0-33.0); MEAN CORPUSCULAR HGB CONC 33.6 g/dL (32.0-36.0); MEAN CORPUSCULAR VOLUME 89.5 fL (79-99); MONOCYTES % (AUTO) 2.7 % (3.0-13.0); NEUTROPHILS % (AUTO) 93.1 % (40.0-77.0); NUCLEATED RED BLOOD CELLS 4.8 % (0.0-0.19); PLATELET COUNT (AUTO) 53 K/uL (130-400); RED BLOOD CELL COUNT(AUTO) 2.56 MIL/uL (4.00-5.50); RED CELL DISTRIBUTION WIDTH 18.5 % (11.0-15.5); WHITE BLOOD COUNT (AUTO) 7.5 K/uL (4.8-10.8)
[2020-11-24 06:35] LABS: CREATININE 3.4 mg/dL (0.5-1.5); MAGNESIUM 2.3 mg/dL (1.80-2.40); PHOSPHORUS 4.9 mg/dL (2.5-4.9); POTASSIUM 4.3 mmol/L (3.5-5.1)
[2020-11-24] MEDS: AMIODARONE 200 MG TABLET PO SCH ×2 (09:01→20:15)
[2020-11-24] MEDS: SODIUM BICARBONATE 650 MG TAB NG SCH ×3 (09:02→20:15)
[2020-11-24] MEDS: FLUOXETINE HCL 20 MG CAPSULE PO SCH (09:02)
[2020-11-24] MEDS: CEFEPIME HCL 1 GM VIAL IVP SCH ×2 (09:02→22:16)
[2020-11-24] MEDS: INSULIN HUMULIN R 100 UNIT/ML 3ML SQ SCH ×4 (09:04→20:17)
[2020-11-24] MEDS: BALSAM PERU/CASTOR OIL 60 GM TUBE TP SCH ×3 (09:07→20:18)
[2020-11-24] MEDS: INSULIN GLARGINE 100 UNITS/ML 10 ML VIAL SQ SCH ×2 (12:12→20:16)
[2020-11-24] MEDS ORDERED: INSULIN HUMULIN R 100 UNIT/ML 3ML SQ SCH (14:30)
[2020-11-25] VITALS (65 sets, daily range): BP systolic 81–145; BP diastolic 35–62
[2020-11-25] MEDS: INSULIN HUMULIN R 100 UNIT/ML 3ML SQ SCH ×7 (00:14→23:25)
[2020-11-25 04:46] LABS: BILIRUBIN,TOTAL 0.5 mg/dL (0.2-1.0); CREATININE 3.7 mg/dL (0.5-1.5); MAGNESIUM 2.3 mg/dL (1.80-2.40); PHOSPHORUS 4.9 mg/dL (2.5-4.9); POTASSIUM 4.2 mmol/L (3.5-5.1); TOTAL PROTEIN, SERUM 4.4 g/dL (6.0-8.3)
[2020-11-25] MEDS: SOLU-MEDROL 125MG VIAL IVP SCH ×3 (06:10→22:05)
[2020-11-25] MEDS: INSULIN GLARGINE 100 UNITS/ML 10 ML VIAL SQ SCH (09:00)
[2020-11-25] MEDS: CEFEPIME HCL 1 GM VIAL IVP SCH ×2 (11:26→22:05)
[2020-11-25] MEDS: SODIUM BICARBONATE 650 MG TAB NG SCH ×3 (11:27→19:59)
[2020-11-25] MEDS: FLUOXETINE HCL 20 MG CAPSULE PO SCH (11:27)
[2020-11-25] MEDS: AMIODARONE 200 MG TABLET PO SCH ×2 (11:27→19:59)
[2020-11-25] MEDS: BALSAM PERU/CASTOR OIL 60 GM TUBE TP SCH ×3 (11:28→19:59)
[2020-11-26] VITALS (61 sets, daily range): BP systolic 101–148; BP diastolic 38–72
[2020-11-26] MEDS: INSULIN HUMULIN R 100 UNIT/ML 3ML SQ SCH ×6 (04:00→23:49)
[2020-11-26 04:39] LABS: BASOPHILS % (AUTO) 0.2 % (0.0-5.0); LYMPHOCYTES % (AUTO) 1.6 % (21.0-51.0); MEAN CORPUSCULAR HEMOGLOBIN 29.4 pg (27.0-33.0); MEAN CORPUSCULAR HGB CONC 32.6 g/dL (32.0-36.0); MEAN CORPUSCULAR VOLUME 90.2 fL (79-99); MONOCYTES % (AUTO) 3.4 % (3.0-13.0); NEUTROPHILS % (AUTO) 94.1 % (40.0-77.0); NUCLEATED RED BLOOD CELLS 6.1 % (0.0-0.19); PLATELET COUNT (AUTO) 35 K/uL (130-400); RED BLOOD CELL COUNT(AUTO) 2.14 MIL/uL (4.00-5.50); RED CELL DISTRIBUTION WIDTH 18.6 % (11.0-15.5); WHITE BLOOD COUNT (AUTO) 5.6 K/uL (4.8-10.8)
[2020-11-26 04:51] LABS: HEMATOCRIT 19.3 % (36-48)
[2020-11-26 05:11] LABS: ALBUMIN 0.9 g/dL (3.5-5.0); BILIRUBIN,TOTAL 0.4 mg/dL (0.2-1.0); CREATININE 2.7 mg/dL (0.5-1.5); MAGNESIUM 2.2 mg/dL (1.80-2.40); PHOSPHORUS 4.5 mg/dL (2.5-4.9); POTASSIUM 4.5 mmol/L (3.5-5.1); TOTAL PROTEIN, SERUM 4.2 g/dL (6.0-8.3)
[2020-11-26 05:16] LABS: BAND NEUTROPHILS % (MANUAL) 11 % (0-2); LYMPHOCYTES % (MANUAL) 6 % (22-44); MONOCYTES % (MANUAL) 1 % (2-9); SEGMENTED NEUTROPHILS % 82 % (40-70)
[2020-11-26 05:17] LABS: MAN.DIFF COMMENT-IMPRESSION MANUAL DIFFERENTIAL
[2020-11-26 05:18] LABS: PLATELET MORPHOLOGY COMMENT MARKED DEC
[2020-11-26] MEDS: SOLU-MEDROL 125MG VIAL IVP SCH ×3 (06:06→21:10)
[2020-11-26] MEDS: INSULIN GLARGINE 100 UNITS/ML 10 ML VIAL SQ SCH (09:00)
[2020-11-26] MEDS: BALSAM PERU/CASTOR OIL 60 GM TUBE TP SCH ×3 (09:00→21:10)
[2020-11-26] MEDS: SODIUM BICARBONATE 650 MG TAB NG SCH ×3 (09:00→21:10)
[2020-11-26] MEDS: AMIODARONE 200 MG TABLET PO SCH ×2 (09:00→21:09)
[2020-11-26] MEDS: FLUOXETINE HCL 20 MG CAPSULE PO SCH (09:00)
[2020-11-26] MEDS ORDERED: NOREPINEPHRIN 8MG/250ML NS PMX 250 ML IV ONE (11:34)
[2020-11-26] MEDS: EPOETIN ALFA-EPBX (ESRD) 10,000 UNIT/ML VIAL SQ SCH (15:00)
[2020-11-26] MEDS: Vitamin B Complex/Vit C/Folic Acid PO SCH (15:45)
[2020-11-26] MEDS: FERROUS SULFATE 325 MG TABLET.DR PO SCH (17:28)
[2020-11-27] VITALS (91 sets, daily range): BP systolic 94–175; BP diastolic 23–64
[2020-11-27] MEDS: INSULIN HUMULIN R 100 UNIT/ML 3ML SQ SCH ×5 (03:04→20:00)
[2020-11-27 03:29] LABS: ABG BASE EXCESS 0.4 mmol/L (-2.0-3.0); ABG HCO3 27.4 mmol/L (21.0-28.0); ABG OXYGEN SATURATION 90.3 % (95.0-99.0); ABG PCO2 54 mmHg (32-45)
[2020-11-27 05:24] LABS: BASOPHILS % (AUTO) 0.3 % (0.0-5.0); HEMATOCRIT 23.3 % (36-48); MEAN CORPUSCULAR HEMOGLOBIN 29.5 pg (27.0-33.0); MEAN CORPUSCULAR VOLUME 89.3 fL (79-99); MONOCYTES % (AUTO) 3.6 % (3.0-13.0); NEUTROPHILS % (AUTO) 95.8 % (40.0-77.0); NUCLEATED RED BLOOD CELLS 13.3 % (0.0-0.19); PLATELET COUNT (AUTO) 28 K/uL (130-400); RED BLOOD CELL COUNT(AUTO) 2.61 MIL/uL (4.00-5.50); RED CELL DISTRIBUTION WIDTH 18.3 % (11.0-15.5); WHITE BLOOD COUNT (AUTO) 3.3 K/uL (4.8-10.8)
[2020-11-27] MEDS: SOLU-MEDROL 125MG VIAL IVP SCH ×3 (05:27→21:58)
[2020-11-27 05:58] LABS: BAND NEUTROPHILS % (MANUAL) 12 % (0-2); LYMPHOCYTES % (MANUAL) 5 % (22-44); MAN.DIFF COMMENT-IMPRESSION MANUAL DIFFERENTIAL; MONOCYTES % (MANUAL) 2 % (2-9); SEGMENTED NEUTROPHILS % 81 % (40-70)
[2020-11-27 05:59] LABS: BILIRUBIN,TOTAL 0.5 mg/dL (0.2-1.0); CREATININE 3.2 mg/dL (0.5-1.5); TOTAL PROTEIN, SERUM 4.3 g/dL (6.0-8.3)
[2020-11-27] MEDS: AMIODARONE 200 MG TABLET PO SCH ×2 (09:18→20:39)
[2020-11-27] MEDS: SODIUM BICARBONATE 650 MG TAB NG SCH ×3 (09:18→20:39)
[2020-11-27] MEDS: Vitamin B Complex/Vit C/Folic Acid PO SCH (09:18)
[2020-11-27] MEDS: FLUOXETINE HCL 20 MG CAPSULE PO SCH (09:19)
[2020-11-27] MEDS: BALSAM PERU/CASTOR OIL 60 GM TUBE TP SCH ×3 (09:19→20:23)
[2020-11-27] MEDS: INSULIN GLARGINE 100 UNITS/ML 10 ML VIAL SQ SCH (09:19)
[2020-11-27] MEDS: FERROUS SULFATE 325 MG TABLET.DR PO SCH ×2 (09:21→18:24)
[2020-11-27] MEDS ORDERED: ACYCLOVIR IV SCH (19:15)
[2020-11-27] MEDS ORDERED: [UNRECOGNIZED DRUG - OTHER] IV SCH (19:15)
[2020-11-27] MEDS: PHARMACY COMMUNICATION MISC SCH ×3 (19:30→21:26)
[2020-11-27] MEDS: VALACYCLOVIR HCL 500 MG TABLET NG SCH (20:39)
[2020-11-28] VITALS (93 sets, daily range): BP systolic 103–136; BP diastolic 30–52
[2020-11-28 03:23] LABS: ABG BASE EXCESS -1.7 mmol/L (-2.0-3.0); ABG HCO3 26.9 mmol/L (21.0-28.0); ABG OXYGEN SATURATION 78.2 % (95.0-99.0); ABG PCO2 62 mmHg (32-45)
[2020-11-28 03:29] LABS: ABG BASE EXCESS -2.5 mmol/L (-2.0-3.0); ABG HCO3 26.3 mmol/L (21.0-28.0); ABG OXYGEN SATURATION 83.8 % (95.0-99.0); ABG PCO2 63 mmHg (32-45)
[2020-11-28] MEDS: INSULIN HUMULIN R 100 UNIT/ML 3ML SQ SCH ×7 (04:55→23:56)
[2020-11-28] MEDS: SOLU-MEDROL 125MG VIAL IVP SCH ×3 (05:19→21:02)
[2020-11-28 05:30] LABS: BASOPHILS % (AUTO) 0.5 % (0.0-5.0); HEMATOCRIT 22.1 % (36-48); MEAN CORPUSCULAR HEMOGLOBIN 29.3 pg (27.0-33.0); MEAN CORPUSCULAR HGB CONC 31.7 g/dL (32.0-36.0); MEAN CORPUSCULAR VOLUME 92.5 fL (79-99); MONOCYTES % (AUTO) 4.1 % (3.0-13.0); NEUTROPHILS % (AUTO) 95.1 % (40.0-77.0); NUCLEATED RED BLOOD CELLS 16.5 % (0.0-0.19); PLATELET COUNT (AUTO) 26 K/uL (130-400); RED BLOOD CELL COUNT(AUTO) 2.39 MIL/uL (4.00-5.50); RED CELL DISTRIBUTION WIDTH 19.2 % (11.0-15.5); WHITE BLOOD COUNT (AUTO) 3.9 K/uL (4.8-10.8)
[2020-11-28 05:43] LABS: CREATININE 2.6 mg/dL (0.5-1.5); POTASSIUM 5.1 mmol/L (3.5-5.1)
[2020-11-28] MEDS: FLUOXETINE HCL 20 MG CAPSULE PO SCH (08:15)
[2020-11-28] MEDS: FERROUS SULFATE 325 MG TABLET.DR PO SCH ×2 (08:15→15:59)
[2020-11-28] MEDS: VALACYCLOVIR HCL 500 MG TABLET NG SCH ×2 (08:15→21:02)
[2020-11-28] MEDS: Vitamin B Complex/Vit C/Folic Acid PO SCH (08:15)
[2020-11-28] MEDS: AMIODARONE 200 MG TABLET PO SCH ×2 (08:15→21:02)
[2020-11-28] MEDS: INSULIN GLARGINE 100 UNITS/ML 10 ML VIAL SQ SCH (08:16)
[2020-11-28] MEDS: SODIUM BICARBONATE 650 MG TAB NG SCH ×3 (08:22→21:02)
[2020-11-28] MEDS: BALSAM PERU/CASTOR OIL 60 GM TUBE TP SCH ×3 (08:22→21:03)
[2020-11-28] MEDS: EPOETIN ALFA-EPBX (ESRD) 10,000 UNIT/ML VIAL SQ SCH (13:59)
[2020-11-28] MEDS ORDERED: NOREPINEPHRIN 4MG/NS 250ML 250 ML IV ONE (23:16)
[2020-11-28] MEDS ORDERED: NOREPINEPHRIN 8MG/250ML NS PMX 250 ML IV ONE (23:27)
[2020-11-28] MEDS: NOREPINEPHRINE BITARTRATE 8 MG/NS 250ML IV SCH ×2 (23:28)
[2020-11-29] VITALS (93 sets, daily range): BP systolic 86–198; BP diastolic 30–63
[2020-11-29] MEDS: INSULIN HUMULIN R 100 UNIT/ML 3ML SQ SCH ×5 (04:00→20:00)
[2020-11-29 05:36] LABS: BASOPHILS % (AUTO) 0.5 % (0.0-5.0); EOSINOPHILS % (AUTO) 39.6 % (0.0-8.0); LYMPHOCYTES % (AUTO) 2.2 % (21.0-51.0); MEAN CORPUSCULAR HEMOGLOBIN 30.2 pg (27.0-33.0); MEAN CORPUSCULAR HGB CONC 32.6 g/dL (32.0-36.0); MEAN CORPUSCULAR VOLUME 92.5 fL (79-99); MONOCYTES % (AUTO) 5.5 % (3.0-13.0); NEUTROPHILS % (AUTO) 42.9 % (40.0-77.0); NUCLEATED RED BLOOD CELLS 22.5 % (0.0-0.19); PLATELET COUNT (AUTO) 22 K/uL (130-400); RED BLOOD CELL COUNT(AUTO) 1.99 MIL/uL (4.00-5.50); WHITE BLOOD COUNT (AUTO) 1.8 K/uL (4.8-10.8)
[2020-11-29 05:40] LABS: HEMATOCRIT 18.4 % (36-48)
[2020-11-29 05:51] LABS: POTASSIUM 5.5 mmol/L (3.5-5.1)
[2020-11-29] MEDS: SOLU-MEDROL 125MG VIAL IVP SCH ×3 (06:20→22:31)
[2020-11-29] MEDS ORDERED: 0.9% NACL 250ML 250 ML IV ONE (08:54)
[2020-11-29] MEDS: FLUOXETINE HCL 20 MG CAPSULE PO SCH (09:01)
[2020-11-29] MEDS: Vitamin B Complex/Vit C/Folic Acid PO SCH (09:01)
[2020-11-29] MEDS: FERROUS SULFATE 325 MG TABLET.DR PO SCH ×2 (09:01→16:22)
[2020-11-29] MEDS: AMIODARONE 200 MG TABLET PO SCH ×2 (09:01→20:32)
[2020-11-29] MEDS: SODIUM BICARBONATE 650 MG TAB NG SCH ×3 (09:01→20:34)
[2020-11-29] MEDS: VALACYCLOVIR HCL 500 MG TABLET NG SCH (09:01)
[2020-11-29] MEDS: BALSAM PERU/CASTOR OIL 60 GM TUBE TP SCH ×3 (09:02→20:32)
[2020-11-29] MEDS: INSULIN GLARGINE 100 UNITS/ML 10 ML VIAL SQ SCH (09:02)
[2020-11-29] MEDS ORDERED: NOREPINEPHRIN 8MG/250ML NS PMX 250 ML IV ONE (22:42)
[2020-11-30] VITALS (90 sets, daily range): BP systolic 88–144; BP diastolic 25–51
[2020-11-30] MEDS: INSULIN HUMULIN R 100 UNIT/ML 3ML SQ SCH ×6 (04:00→19:53)
[2020-11-30] MEDS: SOLU-MEDROL 125MG VIAL IVP SCH ×3 (05:29→23:19)
[2020-11-30] MEDS: NOREPINEPHRINE BITARTRATE 8 MG/NS 250ML IV SCH ×2 (05:40)
[2020-11-30] MEDS: Vitamin B Complex/Vit C/Folic Acid PO SCH (08:59)
[2020-11-30] MEDS: AMIODARONE 200 MG TABLET PO SCH ×2 (08:59→20:02)
[2020-11-30] MEDS: SODIUM BICARBONATE 650 MG TAB NG SCH ×3 (08:59→20:03)
[2020-11-30] MEDS: FERROUS SULFATE 325 MG TABLET.DR PO SCH ×2 (08:59→17:32)
[2020-11-30] MEDS: BALSAM PERU/CASTOR OIL 60 GM TUBE TP SCH ×3 (09:00→20:03)
[2020-11-30] MEDS: INSULIN GLARGINE 100 UNITS/ML 10 ML VIAL SQ SCH (09:01)
[2020-11-30] MEDS ORDERED: MORPHINE 2 MG SYG IVP PRN (10:30)
[2020-11-30] MEDS ORDERED: LORAZEPAM 2 MG/ML 1 ML VIAL IVP PRN ×2 (10:30)
[2020-12-01] VITALS (90 sets, daily range): BP systolic 80–149; BP diastolic 22–52
[2020-12-01] MEDS: INSULIN HUMULIN R 100 UNIT/ML 3ML SQ SCH ×6 (04:00→19:32)
[2020-12-01] MEDS: SOLU-MEDROL 125MG VIAL IVP SCH ×3 (05:05→22:15)
[2020-12-01] MEDS: INSULIN GLARGINE 100 UNITS/ML 10 ML VIAL SQ SCH (09:00)
[2020-12-01] MEDS: Vitamin B Complex/Vit C/Folic Acid PO SCH (09:19)
[2020-12-01] MEDS: AMIODARONE 200 MG TABLET PO SCH ×2 (09:19→20:14)
[2020-12-01] MEDS: SODIUM BICARBONATE 650 MG TAB NG SCH ×3 (09:19→20:14)
[2020-12-01] MEDS: BALSAM PERU/CASTOR OIL 60 GM TUBE TP SCH ×3 (09:20→20:15)
[2020-12-01] MEDS: FERROUS SULFATE 325 MG TABLET.DR PO SCH ×2 (09:20→17:33)
[2020-12-01] MEDS ORDERED: MIDODRINE HCL 5 MG TABLET ONE (09:35)
[2020-12-01] MEDS: MIDODRINE HCL 5 MG TABLET PO SCH ×2 (14:00→20:15)
[2020-12-01] MEDS: EPOETIN ALFA-EPBX (ESRD) 10,000 UNIT/ML VIAL SQ SCH (15:00)
[2020-12-01] MEDS ORDERED: NOREPINEPHRIN 8MG/250ML NS PMX 250 ML IV ONE ×2 (15:46→19:55)
[2020-12-02] VITALS (75 sets, daily range): BP systolic 42–173; BP diastolic 13–78
[2020-12-02] MEDS: INSULIN HUMULIN R 100 UNIT/ML 3ML SQ SCH ×6 (04:00→20:00)
[2020-12-02] MEDS: NOREPINEPHRINE BITARTRATE 8 MG/NS 250ML IV SCH ×2 (06:03)
[2020-12-02] MEDS: SOLU-MEDROL 125MG VIAL IVP SCH ×2 (06:31→13:41)
[2020-12-02] MEDS: FERROUS SULFATE 325 MG TABLET.DR PO SCH ×2 (08:42→17:04)
[2020-12-02] MEDS: MIDODRINE HCL 5 MG TABLET PO SCH ×2 (08:42→13:40)
[2020-12-02] MEDS: Vitamin B Complex/Vit C/Folic Acid PO SCH (08:42)
[2020-12-02] MEDS: AMIODARONE 200 MG TABLET PO SCH (08:42)
[2020-12-02] MEDS: SODIUM BICARBONATE 650 MG TAB NG SCH ×2 (08:42→13:40)
[2020-12-02] MEDS: INSULIN GLARGINE 100 UNITS/ML 10 ML VIAL SQ SCH (08:45)
[2020-12-02] MEDS: BALSAM PERU/CASTOR OIL 60 GM TUBE TP SCH ×2 (08:48→13:41)
[2020-12-02] MEDS ORDERED: NOREPINEPHRINE BITARTRATE 8 MG in 0.9% NACL 250ML 250 ML IV SCH (13:45)
[2020-12-02] MEDS ORDERED: DEXTROSE 50%-WATER 50 ML DISP.SYRIN IV ONE (14:03)
[2020-12-02] MEDS ORDERED: NOREPINEPHRIN 8MG/250ML NS PMX 250 ML IV ONE (14:11)
[2020-12-02] MEDS ORDERED: DEXTROSE 50%-WATER 50 ML DISP.SYRIN IV PRN (18:00)
[2020-12-02] MEDS ORDERED: GLUCAGON 1MG KIT 1 MG ML IM PRN (18:00)
== END 2020-12-02 21:14 | disposition expired | DRG 870 ==
LOC: EDH 11:32 → EDHIP 16:31 → 2CV 22:00 → EDHIP 22:01 → 2CV 22:40 → EDHIP 22:41 → 2DH 10-21 13:53 → 2AH 11-10 03:06 → 2CV 11-10 17:06
PROVIDERS: ADMIT Internal Medicine; ATTEND Internal Medicine
PROC: 02HV33Z Insertion of Infusion Device into Superior Vena Cava, Percutaneous Approach (ICD-10-PCS; 2020-10-18)
PROC: 5A09357 Assistance with Respiratory Ventilation, Less than 24 Consecutive Hours, Continuous Positive Airway Pressure (ICD-10-PCS; 2020-10-22)
PROC: 5A09357 Assistance with Respiratory Ventilation, Less than 24 Consecutive Hours, Continuous Positive Airway Pressure (ICD-10-PCS; 2020-10-23)
PROC: 5A09457 Assistance with Respiratory Ventilation, 24-96 Consecutive Hours, Continuous Positive Airway Pressure (ICD-10-PCS; 2020-10-24)
PROC: 5A09357 Assistance with Respiratory Ventilation, Less than 24 Consecutive Hours, Continuous Positive Airway Pressure (ICD-10-PCS; 2020-10-26)
PROC: 5A09357 Assistance with Respiratory Ventilation, Less than 24 Consecutive Hours, Continuous Positive Airway Pressure (ICD-10-PCS; 2020-10-27)
PROC: 5A09357 Assistance with Respiratory Ventilation, Less than 24 Consecutive Hours, Continuous Positive Airway Pressure (ICD-10-PCS; 2020-10-30)
PROC: 5A0935A Assistance with Respiratory Ventilation, Less than 24 Consecutive Hours, High Flow/Velocity Cannula (ICD-10-PCS; 2020-10-30)
PROC: 5A09357 Assistance with Respiratory Ventilation, Less than 24 Consecutive Hours, Continuous Positive Airway Pressure (ICD-10-PCS; 2020-10-31)
PROC: 5A09357 Assistance with Respiratory Ventilation, Less than 24 Consecutive Hours, Continuous Positive Airway Pressure (ICD-10-PCS; 2020-11-01)
PROC: 5A09357 Assistance with Respiratory Ventilation, Less than 24 Consecutive Hours, Continuous Positive Airway Pressure (ICD-10-PCS; 2020-11-02)
PROC: 5A09357 Assistance with Respiratory Ventilation, Less than 24 Consecutive Hours, Continuous Positive Airway Pressure (ICD-10-PCS; 2020-11-03)
PROC: 5A09357 Assistance with Respiratory Ventilation, Less than 24 Consecutive Hours, Continuous Positive Airway Pressure (ICD-10-PCS; 2020-11-04)
PROC: 5A09357 Assistance with Respiratory Ventilation, Less than 24 Consecutive Hours, Continuous Positive Airway Pressure (ICD-10-PCS; 2020-11-05)
PROC: 5A0935A Assistance with Respiratory Ventilation, Less than 24 Consecutive Hours, High Flow/Velocity Cannula (ICD-10-PCS; 2020-11-09)
PROC: 5A1955Z Respiratory Ventilation, Greater than 96 Consecutive Hours (ICD-10-PCS; principal; 2020-11-10)
PROC: 0BH17EZ Insertion of Endotracheal Airway into Trachea, Via Natural or Artificial Opening (ICD-10-PCS; 2020-11-10)
PROC: 5A09357 Assistance with Respiratory Ventilation, Less than 24 Consecutive Hours, Continuous Positive Airway Pressure (ICD-10-PCS; 2020-11-10)
PROC: 02HV33Z Insertion of Infusion Device into Superior Vena Cava, Percutaneous Approach (ICD-10-PCS; 2020-11-16)
PROC: B548ZZA Ultrasonography of Superior Vena Cava, Guidance (ICD-10-PCS; 2020-11-16)
PROC: 5A1D70Z Performance of Urinary Filtration, Intermittent, Less than 6 Hours Per Day (ICD-10-PCS; 2020-11-17)
PROC: 5A1D70Z Performance of Urinary Filtration, Intermittent, Less than 6 Hours Per Day (ICD-10-PCS; 2020-11-18)
PROC: 30233N1 Transfusion of Nonautologous Red Blood Cells into Peripheral Vein, Percutaneous Approach (ICD-10-PCS; 2020-11-20)
PROC: 5A1D70Z Performance of Urinary Filtration, Intermittent, Less than 6 Hours Per Day (ICD-10-PCS; 2020-11-20)
PROC: 5A1D70Z Performance of Urinary Filtration, Intermittent, Less than 6 Hours Per Day (ICD-10-PCS; 2020-11-22)
PROC: 5A1D70Z Performance of Urinary Filtration, Intermittent, Less than 6 Hours Per Day (ICD-10-PCS; 2020-11-25)
PROC: 5A1D70Z Performance of Urinary Filtration, Intermittent, Less than 6 Hours Per Day (ICD-10-PCS; 2020-11-27)
PROC: 5A1D70Z Performance of Urinary Filtration, Intermittent, Less than 6 Hours Per Day (ICD-10-PCS; 2020-11-29)
DX: A41.9 Sepsis, unspecified organism (principal); U07.1 COVID-19; E43 Unspecified severe protein-calorie malnutrition; J15.9 Unspecified bacterial pneumonia; J12.82 Pneumonia due to coronavirus disease 2019; R65.21 Severe sepsis with septic shock; N17.0 Acute kidney failure with tubular necrosis; N18.6 End stage renal disease; J80 Acute respiratory distress syndrome; J81.1 Chronic pulmonary edema; D61.818 Other pancytopenia; E87.2 Acidosis; G93.40 Encephalopathy, unspecified; I12.0 Hypertensive chronic kidney disease with stage 5 chronic kidney disease or end stage renal disease; E11.22 Type 2 diabetes mellitus with diabetic chronic kidney disease; Z66 Do not resuscitate; I25.10 Atherosclerotic heart disease of native coronary artery without angina pectoris; G89.29 Other chronic pain; D63.1 Anemia in chronic kidney disease; E11.65 Type 2 diabetes mellitus with hyperglycemia; B02.9 Zoster without complications; E11.43 Type 2 diabetes mellitus with diabetic autonomic (poly)neuropathy; E66.01 Morbid (severe) obesity due to excess calories; E78.00 Pure hypercholesterolemia, unspecified; E78.5 Hyperlipidemia, unspecified; E87.70 Fluid overload, unspecified; I48.91 Unspecified atrial fibrillation; J98.2 Interstitial emphysema; L89.152 Pressure ulcer of sacral region, stage 2; K31.84 Gastroparesis; R53.81 Other malaise; R62.7 Adult failure to thrive; Y95 Nosocomial condition; Z68.30 Body mass index [BMI] 30.0-30.9, adult; Z74.01 Bed confinement status; I25.2 Old myocardial infarction; Z79.01 Long term (current) use of anticoagulants; Z79.4 Long term (current) use of insulin; Z91.19 Patient's noncompliance with other medical treatment and regimen; Z95.5 Presence of coronary angioplasty implant and graft; Z90.49 Acquired absence of other specified parts of digestive tract
CPT/HCPCS: 36415; 36430; 36600; 71045; 71250; 71275; 76770; 80048; 80051; 80053; 80061; 80202; 81001; 82040; 82270; 82550; 82565; 82570; 82607; 82728; 82803; 82948; 83036; 83540; 83550; 83605; 83615; 83735; 83874; 83880; 83935; 84100; 84145; 84443; 84484; 84520; 84550; 85014; 85018; 85025; 85027; 85378; 85610; 86701; 86704; 86706; 86850; 86900; 86901; 86923; 87040; 87088; 87324; 87340; 87390; 87426; 87520; 90935; 93005; 93970; 94002; 94003; 94660; 94760; 97039; 99291; A4344; A4606; C1894; G0378; J0133; J0282; J0456; J0692; J0696; J1100; J1644; J1650; J1815; J1940; J2250; J2405; J2543; J2704; J2920; J2930; J3010; J3370; J3486; J3490; J7030; J7040; J7050; J7060; J7070; P9016; Q9967; U0003